=== PATIENT | female | born 2000 | race Caucasian/White ===

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

== ENCOUNTER 2020-01-29 02:41 | Emergency (ER) | payer OTHER ==
[~2020-01-29] VITALS: Ht 157.5 cm; Wt 52.3 kg
[~2020-01-29 02:41] MED LIST: IBUP-1022 PO
[2020-01-29 03:27] LABS: BASO % 0.3 % (0.0-1.0); EOS % 0.1 % (0.0-3.0); HEMATOCRIT 35.9 % (36.0-47.0); HEMOGLOBIN 12.1 g/dl (12.0-15.5); LYMPH # 1.1 10^3/uL (1.5-5.0); LYMPH % 12.2 % (24.0-44.0); MEAN CORPUSCULAR HEMOGLOBIN 28.2 pg (27.0-33.0); MEAN CORPUSCULAR HGB CONC 33.7 g/dl (32.0-36.5); MEAN CORPUSCULAR VOLUME 83.7 fl (80.0-96.0); MONO # 0.6 10^3/uL (0.0-0.8); MONO % 6.4 % (0.0-5.0); NEUTROPHILS # 7.4 10^3/uL (1.5-8.5); NEUTROPHILS % 80.8 % (36.0-66.0); PLATELET COUNT, AUTOMATED 268 10^3/uL (150-450); RED BLOOD COUNT 4.29 10^6/uL (4.00-5.40); WHITE BLOOD COUNT 9.1 10^3/uL (4.0-10.0)
--- NOTE | 2020-01-29 05:24 | REPVR ---
PROCEDURE INFORMATION: Exam: US First Trimester, Transabdominal and US , Transvaginal Exam date and time: 01/29/2020 4:35 AM Age: 19 years old Clinical indication: Lmp or gestational age (in weeks): 6wks; Other: Vag bleeding; ; Additional info: Cynthia bld TECHNIQUE: Imaging protocol: Real-time transabdominal obstetrical ultrasound of the maternal pelvis and a first trimester , less than 14 weeks 0 days, with image documentation. Transvaginal imaging was used for better evaluation of the fetus and adnexa. COMPARISON: No relevant prior studies available. FINDINGS: Gestation: There is an intrauterine gestational sac. No pole is visible. A yolk sac is present. There is hypoechoic tissue adjacent to the gestational sac consistent with hemorrhage, measuring 2.9 x 0.7 x 2.4 cm. Heart rate: No pole identified. Placenta: See Gestation findings. Amniotic fluid: Amniotic fluid is normal for gestational age. BIOMETRY: Estimated gestational age: The estimated gestational age by mean sac diameter is 6 weeks 3 days. Mean sac diameter: The mean sac diameter is 1.58 cm, corresponding to a 6 week 3 day gestation. MATERNAL: Uterus: The uterus is anteverted and measures 7.6 x 5.1 x 6.5 cm . Cervix: Unremarkable. Right adnexa: There is a mildly complex cystic lesion within the right ovary which measures up to 1.7 cm in diameter consistent with a corpus luteum. The right ovary measures 3.7 x 2.1 x 2.6 cm. Normal blood flow is seen in the right ovary on color and pulsed Doppler imaging. Left adnexa: The left ovary appears normal and measures 2.3 x 1.3 x 2.6 cm. Normal blood flow is seen in the left ovary on color and pulsed Doppler imaging. Intraperitoneal space: No intraperitoneal free fluid. IMPRESSION: Intrauterine of uncertain viability. Intrauterine gestational sac with a mean sac diameter of 1.58 cm and a yolk sac but no pole visible, and a perigestational sac hemorrhage. Serial beta HCG follow-up recommended and ultrasound follow-up if clinically indicated. Electronically signed by: Shalonda Parikh On 01/29/2020 05:24:30 AM
[2020-01-29 05:35] VITALS: BP 130/76
== END 2020-01-29 05:36 | disposition home or self-care (01) ==
LOC: M ED 02:41
DX: O20.0 Threatened abortion (principal); O20.8 Other hemorrhage in early pregnancy; Z3A.01 Less than 8 weeks gestation of pregnancy

== ENCOUNTER 2020-03-26 17:51 | Emergency (ER) | payer OTHER ==
[~2020-03-26] VITALS: Ht 154.9 cm; Wt 53.4 kg
--- NOTE | 2020-03-26 20:55 | REPVR ---
PROCEDURE INFORMATION: Exam: US First Trimester, Transabdominal Exam date and time: 03/26/2020 8:42 PM Age: 19 years old Clinical indication: Condition or disease; Lmp or gestational age (weeks): 12/17/19; Other: Diagnosed with demise, ; 2nd ; ; Additional info: Miscarraige TECHNIQUE: Imaging protocol: Real-time transabdominal obstetrical ultrasound of the maternal pelvis and a first trimester , less than 14 weeks 0 days, with image documentation. COMPARISON: No relevant prior studies available. FINDINGS: Gestation: Single gestational sac demonstrated within the uterus. Single fetus demonstrated within the gestational sac with a crown-rump length measuring 22 mm consistent with 8 weeks 6 days. Gestational age based on LMP of 12/17/2019 corresponds to 14 weeks 2 days. Embryonic/ heart rate: Absent cardiac activity consistent with early loss. Placenta: Posterior placenta demonstrated. Amniotic fluid: Amniotic fluid volume unremarkable. BIOMETRY: Gestational age (AUA): 14 weeks 2 days based on clinical dates versus 8 weeks 6 days based on crown-rump length measurements suggesting demise occurring at approximately 8 weeks 6 days. MATERNAL: Uterus: Uterus measures 16 x 8 x 9.6 cm. Cervix: Unremarkable. Right adnexa: Unremarkable. Left adnexa: Unremarkable. Intraperitoneal space: No intraperitoneal free fluid. IMPRESSION: Early loss as described above. Electronically signed by: Efren Whitney On 03/26/2020 20:54:34 PM
[2020-03-26 21:17] VITALS: BP 121/64
== END 2020-03-26 21:18 | disposition home or self-care (01) ==
LOC: M ED 17:51
DX: O02.1 Missed abortion (principal)

== ENCOUNTER → 2020-06-14 | Outpatient (CLI) | payer OTHER ==
--- NOTE | 2020-06-14 10:20 | REP ---
INDICATION: CONFIRM VIABILITY VS ECTOPIC COMPARISON: None. TECHNIQUE: Transabdominal and transvaginal 1st trimester obstetrical ultrasound with color Doppler evaluation. FINDINGS: Heterogeneous enlarged uterus measures 9.4 x 9.8 x 5.7 cm the endometrium is significantly heterogeneous with complex hypoechoic areas, hypervascular and thickened to 46 mm. No discrete, defined intrauterine is appreciated. Correlation with serial beta HCG levels is recommended. Bilateral maternal ovaries are normal in appearance and vascularity without torsion. Right ovary measures 2.8 x 1.9 x 1.9 cm (RI 0.48). Left ovary measures 2.1 x 1.1 x 1.3 cm (RI 0.46). No pelvic fluid or adnexal mass lesion noted. IMPRESSION: Heterogeneous complex vascular thickened endometrium os oblique representing decidual reaction without discernible intrauterine identified. Differential diagnosis includes early as well as spontaneous . Correlation with serial HCG levels and repeat ultrasound recommended. <Electronically signed by Bebeto Sierra > 06/14/20 [id number]
== END ==
LOC: M WHC 08:59
PROVIDERS: ATTEND Advanced Practice Midwife
DX: N91.2 Amenorrhea, unspecified (principal); Z33.1 Pregnant state, incidental

== ENCOUNTER 2020-06-23 09:21 | Emergency (ER) | payer OTHER ==
[~2020-06-23] VITALS: Ht 157.5 cm; Wt 52.1 kg
[2020-06-23] MEDS ORDERED: NS 1,000 ML IV ONE (09:30)
[2020-06-23] MEDS ORDERED: KETOROLAC 30 MG/ML 1ML VIAL IV ONE (10:15)
[2020-06-23 10:21] LABS: HEMATOCRIT 35.8 % (36.0-47.0); HEMOGLOBIN 12.1 g/dl (12.0-15.5); MEAN CORPUSCULAR HEMOGLOBIN 28.3 pg (27.0-33.0); MEAN CORPUSCULAR HGB CONC 33.8 g/dl (32.0-36.5); MEAN CORPUSCULAR VOLUME 83.6 fl (80.0-96.0); PLATELET COUNT, AUTOMATED 221 10^3/uL (150-450); RED BLOOD COUNT 4.28 10^6/uL (4.00-5.40); WHITE BLOOD COUNT 10.1 10^3/uL (4.0-10.0)
[2020-06-23 10:40] LABS: BLOOD UREA NITROGEN 5 MG/DL (7-18); CALCIUM LEVEL 8.5 MG/DL (8.5-10.1); CARBON DIOXIDE LEVEL 28 MEQ/L (21-32); CHLORIDE LEVEL 105 MEQ/L (98-107); CREATININE FOR GFR 0.63 MG/DL (0.55-1.30); GLUCOSE, FASTING 116 MG/DL (70-100); HCG, SERUM QUANTITATIVE 445 MIU/ML; POTASSIUM SERUM 3.6 MEQ/L (3.5-5.1); SODIUM LEVEL 137 MEQ/L (136-145)
[2020-06-23] MEDS ORDERED: ONDANSETRON 4MG/2ML VIAL IV ONE (11:30)
[2020-06-23] MEDS ORDERED: MORPHINE 2 MG/ML 1ML VIAL (J2270) IV ONE (11:30)
--- NOTE | 2020-06-23 11:45 | REP ---
INDICATION: Recent dilatation and curettage with continued pain and bleeding COMPARISON: None. TECHNIQUE: Transabdominal pelvic ultrasound followed by transvaginal examination for better evaluation of the endometrium and adnexa with color Doppler evaluation of the ovaries. FINDINGS: Bladder is unremarkable and measures 6.3 x 2.9 x 3.8 cm. Enlarged heterogeneous anteverted uterus measures 10.4 x 6.3 x 8.0 cm. The endometrial complex measures greater than 30 mm and includes heterogeneous echogenic avascular material measuring 3.1 x 4.5 x 6.2 cm likely representing hemorrhagic debris and clot. Bilateral ovaries are normal in appearance and vascularity without evidence for torsion. Right ovary measures 2.0 x 2.0 x 3.0 cm; R I = 0.51. Left ovary measures 2.7 x 1.0 x 2.2 cm with a 1.2 x 0.8 x 1.4 cm simple para ovarian cyst.; R I = 0.66. No pelvic free fluid. IMPRESSION: 1. Heterogeneous material distends the endocervical canal likely representing hemorrhagic debris and clot formation. Less likely differential cannot exclude retained products of conception. <Electronically signed by Bebeto Sierra > 06/23/20 [id number]
[2020-06-23 12:06] VITALS: BP 101/52
[2020-06-23] MEDS ORDERED: IBUP100S65 PO (12:16)
--- NOTE | 2020-06-25 11:13 | ED PDOC ---
Post-Departure Follow-Up pelvic us faxed to dr rodriguez for fu Hardik Gordon MD Jun 25, 2020 11:13
== END 2020-06-23 12:30 | disposition home or self-care (01) ==
LOC: M ED 09:21
DX: N99.89 Other postprocedural complications and disorders of genitourinary system (principal); R10.84 Generalized abdominal pain
CPT/HCPCS: 76830; 76856; 80048; 81001; 84702; 85027; 86850; 86900; 86901; 93976; 96361; 96374; 96375; 99284; J1885; J2270; J2405

== ENCOUNTER 2020-09-14 20:09 | Emergency (ER) | payer OTHER ==
[~2020-09-14] VITALS: Ht 157.5 cm; Wt 52.3 kg
[~2020-09-14 20:09] MED LIST changes: +IBUP100S65 PO
--- OUTSIDE RECORDS SUMMARY | 2020-09-14 20:15 | CCD ---
Author Author [facility] Organization [facility] Address Unknown Phone Unavailable Care Team Providers Care Dry Cell Tester Name Role Phone Sonya Smith Unavailable PROBLEMS Type Condition ICD9-CM Code [id number] Code Onset Dates Condition S tatus SNOMED Code Notes Problem Supervision of other normal Z34.80 Ac tive 892159447 Problem Amenorrhea N91.2 Active 21671379 ALLERGIES No Known Allergies ENCOUNTERS from 2000 to 2020-06-18 Encounter Location Date Provider Diagnosis [facility] [address] [place] [phone] May, Sonya Smith IMMUNIZATIONS No Information SOCIAL HISTORY Tobacco Use: Social History Observation Description Date Details (start date - stop date) Never Smoker Sex Assigned At : Social History Observation Description Sex Assigned At Unknown Sexual Hx: Question Answer Notes Had sex in the last 12 months (vaginal, oral, or anal)? Yes Have you ever had an STD? No with Men only Use protection? No Alcohol Screening: Question Answer Notes Did you have a drink containing alcohol in the past year? No Points 0 Interpretation Negative Tobacco Use: Question Answer Notes Are you a: never smoker REASON FOR REFERRAL No Information VITAL SIGNS No information MEDICATIONS No Information PROCEDURES No Information RESULTS No Results REASON FOR VISIT AUTHORIZATION MEDICAL (GENERAL) HISTORY Type Description Date Surgical History 09/2018 Surgical History tonsillectomy Surgical History adenoidectomy Surgical History D&C Hospitalization History Childbirth Goals Section No Information Health Concerns No Information MEDICAL EQUIPMENT No Information MENTAL STATUS No Information FUNCTIONAL STATUS No Information ASSESSMENTS No Information PLAN OF TREATMENT Next Appt Details Provider Name:Sonya Smith 2020-06-20 0 7:30:00 AM, [address] [place], [phone], Provider Name:Sonya Smith, 2020-07-04 0 8:20:00 AM, [address] [place], [address], Insurance Providers Payer Name Payer Address Payer Phone Insured Name Patient Relati onship to Insured Coverage Start Date Coverage End Date MEDICAID [id number] [address] [facility] [id number] [facility] CORPORATE CLAIMS DEPT [address] [facility] [address] NIMA STEVEN self
--- OUTSIDE RECORDS SUMMARY | 2020-09-14 20:15 | CCD ---
Author Author [facility] Organization [facility] Address Unknown Phone Unavailable Care Team Providers Care Florist Helper Name Role Phone Kiana Hand Unavailable PROBLEMS Type Condition ICD9-CM Code [id number] Code Onset Dates Condition S tatus SNOMED Code Notes Problem Supervision of other normal Z34.80 Ac tive 079685068 Problem Amenorrhea N91.2 Active [id number] ALLERGIES No Known Allergies ENCOUNTERS from 2000 to 2020-06-16 Encounter Location Date Provider Diagnosis [facility] [address] [place] [phone] May, Kiana Hand Threatened O20.0 IMMUNIZATIONS No Information SOCIAL HISTORY Tobacco Use: [...] Information RESULTS No Results REASON FOR VISIT Ultrasound results MEDICAL (GENERAL) HISTORY Type Description Date Surgical History 09/2018 Surgical History tonsillectomy Surgical History adenoidectomy Surgical History D&C Hospitalization History Childbirth Goals Section No Information Health Concerns No Information MEDICAL EQUIPMENT No Information MENTAL STATUS No Information FUNCTIONAL STATUS No Information ASSESSMENTS Encounter Date Diagnosis Assessment Notes Treatment Notes Treatm ent Clinical Notes May, Threatened (ICD-10 - O20.0) PLAN OF TREATMENT Treatment Notes Test Name Order Date HCG, SERUM QUANTITATIVE 2020-06-16 Next Appt Details Provider Name:Sonya Smith, 2020-06-18 1 1:40:00 AM, [address] [place], [address], Insurance Providers Payer Name Payer Address Payer Phone Insured Name Patient Relati onship to Insured Coverage Start Date Coverage End Date MEDICAID [email or web address] [address] [facility] [id number] NIMA STEVEN [facility] (NON MEDICAID MANAGED CARE) CORPORATE CLAIMS DEPT [address] [facility] [phone] N[employer] self
--- OUTSIDE RECORDS SUMMARY | 2020-09-14 20:15 | CCD ---
Author Author [facility] Organization [facility] Address Unknown Phone Unavailable Care Team Providers Care Human Resources File Clerk Name Role Phone Sonya Smith Unavailable PROBLEMS Type Condition ICD9-CM Code NUJ41-YU Code Onset Dates Condition S tatus SNOMED Code Notes Problem Supervision of other normal Z34.80 Ac tive 752171335 Problem Amenorrhea N91.2 Active 59883412 ALLERGIES No Known Allergies ENCOUNTERS from 2000 to 2020-07-15 Encounter Location Date Provider Diagnosis [facility] [address] [place] [phone] Jun, Sonya Smith Encounter for postop erative care Z48.89 IMMUNIZATIONS No Information SOCIAL HISTORY Tobacco Use: [...] REASON FOR REFERRAL No Information VITAL SIGNS Weight 114 lbs Jun, Height 62 in Jun, BMI 20.85 kg/m2 Jun, Blood pressure systolic 106 mm Hg Jun, Blood pressure diastolic 64 mm Hg Jun, MEDICATIONS No Known Medications PROCEDURES No Information RESULTS Component Value Reference Range HCG, SERUM QUANTITATIVE Reviewed date:07/13/2020 09:12:35 Interpretation: Performing Lab:[facility], [facility] [address] [address] , ,[place] [address] HCG, SERUM QUANTITATIVE 5 REASON FOR VISIT 2WK PO VISIT MEDICAL (GENERAL) HISTORY Type Description Date Surgical History 09/2018 Surgical History tonsillectomy Surgical History adenoidectomy Surgical History D&C Hospitalization History Childbirth Goals Section No Information Health Concerns No Information MEDICAL EQUIPMENT No Information MENTAL STATUS No Information FUNCTIONAL STATUS No Information ASSESSMENTS Encounter Date Diagnosis Assessment Notes Treatment Notes Treatm ent Clinical Notes Jun, Encounter for postoperative care (ICD-10 - Z48.8 9) declines control desired future. Patient instructed once contact office to obtain early hCG level followed by early ultrasound. PLAN OF TREATMENT Treatment Notes Assessment Notes Clinical Notes Encounter for postoperative care decline s control desired future. Patient instructed once contact office to obtain early hCG level followed by early ultrasound. Next Appt Details prn Reason: Insurance Providers Payer Name Payer Address Payer Phone Insured Name Patient Relati onship to Insured Coverage Start Date Coverage End Date MEDICAID [employer] [address] [facility] [id number] [facility] CORPORATE CLAIMS DEPT [address] [facility] [phone] NIMA STEVEN
--- OUTSIDE RECORDS SUMMARY | 2020-09-14 20:15 | CCD ---
Author Author [facility] Organization [facility] Address [address] [place], [place] [phone] Phone Care Team Providers Care Merchandising Consultant Name Role Phone JOSE MARINELLI Unavailable Allergies, Adverse Reactions, Alerts No Known Drug Allerg ies 10/23/2016 Medications * Continue: * * No Active Medications 08/02/2020 * Discontinued: * * dexAMETHasone 4 mg tablet 11/05/2017 * Jazzy Bryant * Claritin RediTabs 10 mg disintegrating tablet 09/22/2018 * RENE KOWALSKI LPN * 28 mg iron-800 mcg tablet 08/02/2020 Problems Acute pharyngitis, unspecified (J02.9) Nasal congestion (R09.81) 11/05/2017 Acute pharyngitis, unspecified (J02.9) Encounter for test, result pos itive (Z32.01) 02/18/2018 Amenorrhea, unspecified (N91.2) 8 Acute upper respiratory infection, unspe cified (J06.9) 07/25/2018 Nasal congestion (R09.81) 09/22/2018 Acute pharyngitis, unspecified (J02.9) Impacted cerumen, bilateral (H61.23) 08/28 Acute upper respiratory infection, unspe cified (J06.9) 09/22/2018 Acute nasopharyngitis [common cold] (J00 ) 09/28/2018 Acute nasopharyngitis [common cold] (J00 ) 05/11/2019 Nasal congestion (R09.81) 05/11/2019 Otalgia, bilateral (H92.03) 05/11/2019 Dizziness and giddiness (R42) 08/02/2020 Other symptoms and signs concerning food and fluid intake (R63.8) 08/02/2020 Results Leukocytes: Negative 08/02/2020 Nitrite: Negative 08/02/2020 Urobilinogen: 2 mg/dL 08/02/2020 Protein: +1 08/02/2020 pH: 6.5 08/02/2020 Blood (Urine): Hemol +++ 08/02/2020 Specific [place]: 1.020 08/02/2020 Ketone: Negative 08/02/2020 Bilirubin: Negative 08/02/2020 Glucose: Negative 08/02/2020 TSH,ULTRASENSITIVE @: 0.826 mIU/L SODIUM: 143 mmol/L 08/02/2020 Potassium: 4.1 mmol/L 08/02/2020 CHLORIDE: 105 mmol/L 08/02/2020 CO2: 28 mmol/L 08/02/2020 ANION GAP: 10 mmol/L 08/02/2020 UREA NITROGEN: 12 mg/dL 08/02/2020 Creatinine: 0.66 mg/dL 08/02/2020 BUN/CREAT RATIO: 18.2 RATIO 08/02/2020 Glucose: 84 mg/dL 08/02/2020 CALCIUM: 8.9 mg/dL 08/02/2020 TOTAL PROTEIN: 7.1 g/dL 08/02/2020 ALBUMIN: 4.2 g/dL 08/02/2020 GLOBULIN: 2.9 g/dL 08/02/2020 ALB/GLOB RATIO: 1.4 RATIO 08/02/2020 ALKALINE PHOSPHATASE: 80 U/L 08/02/2020 BILIRUBIN,TOTAL: 0.9 mg/dL 08/02/2020 AST (SGOT): 13 U/L 08/02/2020 ALT (SGPT): 28 U/L 08/02/2020 GFR : >60 08/02/2020 GFR ( AMER): >60 08/02/2020 WBC: 3.9 10*3/uL 08/02/2020 RBC: 4.57 10*6/uL 08/02/2020 HGB: 13.1 g/dL 08/02/2020 HCT: 38.6 % 08/02/2020 MCV: 84.4 fL 08/02/2020 MCH: 28.7 pg 08/02/2020 MCHC: 34.1 g/dL 08/02/2020 RDW: 12.8 % 08/02/2020 PLT: 279 10*3/uL 08/02/2020 MPV: 8.8 fL 08/02/2020 NEUT %: 47.9 % 08/02/2020 LYMPH %: 40.9 % 08/02/2020 MONO %: 9.7 % 08/02/2020 EOS %: 0.4 % 08/02/2020 BASO %: 1.1 % 08/02/2020 NEUT #: 1.9 10*3/uL 08/02/2020 LYMPH #: 1.6 10*3/uL 08/02/2020 MONO #: 0.4 10*3/uL 08/02/2020 EOS #: 0 10*3/uL 08/02/2020 BASO #: 0 10*3/uL 08/02/2020 Chief Complaint/Reason for Visit EKG sinus rhythm without ectopy or ST ch angesFBG 100Orthostatic vital signs normalUrinalysis unremarkableUrine culture not indicatedUrine negativeLabs ordered and collectedTesting for COVID19 is negative. However - negative results do not rule out a SARS CoV-2 infection, particularly in those who have been in contact with the virus.Patient encouraged to eat something small every 2-3 hours,If symptoms fail to improve or labs indicate abnormality, treatment will be pending those resultsPatient does not have a primary care providerShe is given contact information for local providers accepting new patientIf symptoms fail to improve she is asked to follow-up here until she gets established lightheaded UNremarkable examPt requested note for jody torres, one provided, she works again on 05/13/19Advised to use salt water gargles, drink warmed fluids, increase fluid intake, blow nose oftenF/U PCP SORE THROAT/EAR ACHE Unremarkable examHome care discussedF/U sheet layer Cough Ear lavage cleared canals, no infection notedHome care discussed sick since yesterday morning sore throat, both ears hurt. She is 29 wks Patient presents with several complaints 1. Sore throat. Rapid strep is negativeThroat culture sentExam is unrevealingHousehold contact with coxsackievirus2. Tenderness in the breastOn examination no obvious massI advised follow-upFurther questioning revealed that her menstrual period is late which leads to #33. Amenorrhea. test rapidly turn positivePatient was advisedShe states that she will tell her motherStart vitaminsWill find OB Sore throat x 3 days. Cyst on right justin st, x 1 month ago PharyngitisNasal congestionRapid strep n egativeThroat culture sentStart Claritin sore throat PT AMB TO ROOM FOR ST X LAST NIGHT. PT H NOT TONSILS. PT DID NOT HAVE FLU SHOT. PT DID NOT TAKE ANY OTC MEDICATIONS TODAY. PT TAKES ORTHO TRI CYCLEN. Procedures Performed and Ordered Today * RAPID STREP 11/05/2017 * URINE TEST 02/18/2018 * MED SERV, EMILIANO/WKEND/HOLIDAY 02/18/2018 * RAPID STREP 02/18/2018 * RAPID STREP 07/25/2018 * RAPID STREP 10/23/2016 * REMOVE IMPACTED EAR WAX 09/22/2018 * MED SERV, EMILIANO/WKEND/HOLIDAY 07/25/2018 * INFECTIOUS AGENT DETECTION BY NUCLEIC ACID 08/02/2020 * * Lab: Collected Date 11/05/17 0958 11/05/2017 THROAT PO CULTURE 11/05/2017 Collected Date 02/18/2018 1943 02/18/2018 THROAT PO CULTURE 02/18/2018 THROAT PO CULTURE 07/25/2018 Collected Date 07/25/18 11:50 07/25/2018 THROAT PO CULTURE 10/23/2016 TSH 08/02/2020 CMP 08/02/2020 CBCDIFF 08/02/2020 Collected Date 08/02/2020 Vital signs Body Temperature: Heart Rate: Respiratory Rate: BP: Height: Weight: BMI: O2 Percentage dC Oximetry : Inhaled Oxygen Concentration: 97.1F 08/02/2020 79 beats per minute 16 breaths per minute 08/02/2020 102/70 mmHg 08/02/2020 5ft, 2in 08/02/2020 110lbs 08/02/2020 20.117 08/02/2020 99% 08/02/2020 21% 08/02/2020 Immunizations Social History Smoking Status: Never smoker. 08/02/2020 Reason for Referral Functional Status Plan of Treatment Procedures Scheduled: Collected Date 07/25/2018 THROAT PO CULTURE 07/25/2018 Appointments Schedul ed: , October 23, 2016, 7:00 PM, JOSE MCCARTHY , November 05, 2017, 9:50 AM, JOSE MCCARTHY January, 7:10 PM, JOSE MCCARTHY Wednesday, July 25, 2018, 12:00 PM, OJSE M TREJO NP Saturday, September 22, 2018, 11:40 AM, BOUCHRA GOVEA NP Friday, September 28, 2018, 6:00 PM, BOUCHRA GOVEA NP Saturday, May 11, 2019, 12:40 PM, BOUCHRA GOVEA PARTY PLAN SALES HOST/HOSTESS , August 02, 2020, 2:20 PM, JOSE M TREJO [employer]Y PLAN SALES HOST/HOSTESS Instructions: <Follow up with primary care> We will call with lab and/or xray results If your symptoms worsen, go to the Emergency Room. As discussed, all of your testing here at urgent care was negativeWe did order some labs to send out for further evaluation of your electrolytes and your thyroid as well as your platelets and blood cell countAnemia could be concerning factor however your skin was completely normal and there were no other symptoms that would be indicative of thatHigh suspicion this is related to your poor fluid and food intake. He should not be going 10-12 hours without anything to eat or drinkRecommend half your weight in ounces of water a dayEat something every 3 hours i.e. breakfast, snack, lunch, snack, dinnerRecommend at least [phone] hipolito a dayWe will contact you with the results of your labsShould your symptoms worsen prior to that time, report to the ER <Follow up with primary care> Return if symptoms worsen <Follow up with primary care> Return if symptoms worsen <Follow up with primary care> Treat fever with ibuprofen and/or acetaminophen per label instructions as needed unless allergic or otherwise intolerant. Return if symptoms worsen <Follow up with primary care> Return if symptoms worsen Negative strep- we will send culture for confirmationDiscussed supportive managementTylenol as needed for painSaline nasal spray <Follow up with primary care> Return if symptoms worsen We will call with lab and/or xray results You will need to establish with an obstetricianDo not take any medications without checking first <Follow up with primary care> Treat fever with ibuprofen and/or acetaminophen per label instructions as needed unless allergic or otherwise intolerant. Return if symptoms worsen If your symptoms worsen, go to the Emergency Room. Treat fever with ibuprofen and/or acetaminophen per label instructions as needed unless allergic or otherwise intolerant. Return if symptoms worsen We will call with lab and/or xray results Payers Insurance Policy Type Po licy ID Relation Subscriber Expi ration ID IDENTIFICATION Other Insurance Self [employer]EV[employer] Medicaid - [employer] Medicaid [id number] Self NIMA STEVEN [facility] Commercial Insurance [id number] Self NIMA STEVEN Encounters OFFICE/OUTPATIENT SIT, EST 08/02/2020 Diagnoses Dizziness and giddiness Other symptoms and signs concerning food and fluid intake OFFICE/OUTPATIENT SIT, EST 05/11/2019 OFFICE/OUTPATIENT SIT, EST 09/28/2018 OFFICE/OUTPATIENT SIT, EST 09/22/2018 OFFICE/OUTPATIENT SIT, EST 07/25/2018 Diagnoses Acute upper respiratory infection, unspecified OFFICE/OUTPATIENT SIT, EST 02/18/2018 OFFICE/OUTPATIENT SIT, EST 11/05/2017 MEDICAL SERVICES AFT ER HRS 10/23/2016 OFFICE/OUTPATIENT SIT, EST 10/23/2016
--- OUTSIDE RECORDS SUMMARY | 2020-09-14 20:15 | CCD ---
Author Author [facility] Organization [facility] Address Unknown Phone Unavailable Care Team Providers Care Instrumentation Designer Name Role Phone Sonya Smith Unavailable PROBLEMS Type Condition ICD9-CM Code [id number] Code Onset Dates Condition S tatus SNOMED Code Notes Problem Supervision of other normal Z34.80 Ac tive 085184085 Problem Amenorrhea N91.2 Active [id number] ALLERGIES No Known Allergies ENCOUNTERS from 2000 to 2020-07-03 Encounter Location Date Provider Diagnosis [facility] [address] [place] [id number] May, Sonya Smith Retained placenta wi thout hemorrhage O73.0 IMMUNIZATIONS No Information SOCIAL HISTORY Tobacco Use: [...] FOR REFERRAL No Information VITAL SIGNS Weight 118 lbs May, Height 62 in May, BMI 21.58 kg/m2 May, Blood pressure systolic 108 mm Hg May, Blood pressure diastolic 68 mm Hg May, MEDICATIONS No Known Medications PROCEDURES No Information RESULTS No Results REASON FOR VISIT POSSIBLE ECTOPIC PER [facility] MEDICAL (GENERAL) HISTORY Type Description Date Surgical History 09/2018 Surgical History tonsillectomy Surgical History adenoidectomy Surgical History D&C Hospitalization History Childbirth Goals Section No Information Health Concerns No Information MEDICAL EQUIPMENT No Information MENTAL STATUS No Information FUNCTIONAL STATUS No Information ASSESSMENTS Encounter Date Diagnosis Assessment Notes Treatment Notes Treatm ent Clinical Notes May, Retained placenta without hemorrhage (ICD-10 - O 73.0) Discussed findings with patient and based on ultrasound imaging and her plateaued hCG Quant's, I believe that this is retained tissue from her previous miscarriage. This is less likely an ectopic . Other DDx would include GTD (choriocarcinoma). Discussed office endometrial biopsy versus a repeat dilation and curettage. Discussed risks with both after consultation with patient, will proceed with the dilation and curettage in the OR. Pre-Operative Counseling Procedure: dilation and curettage Surgeon: Sonya Smith MD Patient has been counseling regarding the risks of the procedure to include anesthesia risks to include , bleeding/need for blood transfusion, infection, damage to internal organs, uterine perforation, postoperative pain and need for future surgery based on findings. She understands these risks and wishes to proceed with the above procedures. PLAN OF TREATMENT Treatment Notes Assessment Notes Clinical Notes Retained placenta without hemorrhage Dis cussed findings with patient and based on ultrasound imaging and her plateaued hCG Quant's, I believe that this is retained tissue from her previous miscarriage. This is less likely an ectopic . Other DDx would include GTD (choriocarcinoma). Discussed office endometrial biopsy versus a repeat dilation and curettage. Discussed risks with both after consultation with patient, will proceed with the dilation and curettage in the OR.Pre-Operative CounselingProcedure: dilation and curettageSurgeon: Sonya Smith MDPatient has been counseling regarding the risks of the procedure to include anesthesia risks to include , bleeding/need for blood transfusion, infection, damage to internal organs, uterine perforation, postoperative pain and need for future surgery based on findings. She und erstands these risks and wishes to proceed with the above procedures. Next Appt Details Provider Name:Sonya Smith, 2020-07-04 0 8:20:00 AM, [address] [place], [address], Insurance Providers Payer Name Payer Address Payer Phone Insured Name Patient Relati onship to Insured Coverage Start Date Coverage End Date [facility] (NON MEDICAID MANAGED CARE) CORPORATE CLAIMS DEPT [address] [facility] [phone] [employer] MEDICAID [employer] [address] [facility] [id number] [place] self
--- OUTSIDE RECORDS SUMMARY | 2020-09-14 20:15 | CCD ---
Author Author [facility] Organization [facility] Address Unknown Phone Unavailable Care Team Providers Care Jig And Fixture Builder Name Role Phone Kiana Hand Unavailable PROBLEMS Type Condition ICD9-CM Code [id number] Code Onset Dates Condition S tatus SNOMED Code Notes Problem Supervision of other normal Z34.80 Ac tive 024017517 Problem Amenorrhea N91.2 Active [id number] ALLERGIES No Known Allergies ENCOUNTERS from 2000 to 2020-06-30 Encounter Location Date Provider Diagnosis [facility] [address] [place] [id number] May, Kiana Hand with incon clusive viability O36.80X0 and Amenorrhea N91.2 IMMUNIZATIONS No Information SOCIAL HISTORY Tobacco Use: [...] FOR REFERRAL No Information VITAL SIGNS Weight 120.2 lbs May, Weight-kg 54.52 kg May, Height 62 in May, BMI 21.985 kg/m2 May, Blood pressure systolic 102 mm Hg May, Blood pressure diastolic 72 mm Hg May, MEDICATIONS No Known Medications PROCEDURES No Information RESULTS Component Value Reference Range HCG, SERUM QUANTITATIVE Reviewed date:06/12/2020 13:04:08 Interpretation: Performing Lab:[facility], [facility] [address] [facility] [address] , ,[place] [address] HCG, SERUM QUANTITATIVE 2023 WW OBS COMPLETE US Reviewed date:06/29/2020 14:45:45 Interpretation: Performing Lab:[facility], [place] [address] REASON FOR VISIT 1ST PN VISIT MEDICAL (GENERAL) HISTORY Type Description Date Surgical History 09/2018 Surgical History tonsillectomy Surgical History adenoidectomy Surgical History D&C Hospitalization History Childbirth Goals Section No Information Health Concerns No Information MEDICAL EQUIPMENT No Information MENTAL STATUS No Information FUNCTIONAL STATUS No Information ASSESSMENTS Encounter Date Diagnosis Assessment Notes Treatment Notes Treatm ent Clinical Notes May, with inconclusive viability (ICD -10 - O36.80X0) May, Amenorrhea (ICD-10 - N91.2) PLAN OF TREATMENT Next Appt Details prn Reason: Provider Name:Sonya Smith, 2020-07-04 0 8:20:00 AM, [address] [place], [address], Insurance Providers Payer Name Payer Address Payer Phone Insured Name Patient Relati onship to Insured Coverage Start Date Coverage End Date [facility] (NON MEDICAID MANAGED CARE) CORPORATE CLAIMS DEPT [address] [facility] [phone] [employer] MEDICAID [facility] [address] [facility] [id number] [place]
--- OUTSIDE RECORDS SUMMARY | 2020-09-14 20:16 | CCD ---
Author Author [facility] Organization [facility] Address Unknown Phone Unavailable Care Team Providers Care Churner Name Role Phone Funmilayo Ortiz MD Unavailable Unavailable Naro, M Kaye CNM Unavailable Unavailable Naro, M Kaye CNM Unavailable Unavailable Naro, M Kaye CNM Unavailable Unavailable Naro, M Kaye CNM Unavailable Unavailable Naro, M Kaye CNM Unavailable Unavailable Naro, M Kaye CNM Unavailable Unavailable Naro, M Kaye CNM Unavailable Unavailable Naro, M Kaye CNM Unavailable Unavailable Naro, M Kaye CNM Unavailable Unavailable Naro, M Kaye CNM Unavailable Unavailable Naro, M Kaye CNM Unavailable Unavailable Naro, M Kaye CNM Unavailable Unavailable Naro, M Kaye CNM Unavailable Unavailable Naro, M Kaye CNM Unavailable Unavailable Naro, M Kaye CNM Unavailable Unavailable Funmilayo Ortiz MD Unavailable Unavailable Tiffany Aguiar SMALL ENGINE TRAINER Unavailable Unavailable Tiffany Aguiar SMALL ENGINE TRAINER Unavailable Unavailable Tiffany Aguiar SMALL ENGINE TRAINER Unavailable Unavailable Potter, M Yenni SMALL ENGINE TRAINER Unavailable Unavailable Potter, M Yenni SMALL ENGINE TRAINER Unavailable Unavailable Potter, M Yenni SMALL ENGINE TRAINER Unavailable Unavailable Potter, M Yenni SMALL ENGINE TRAINER Unavailable Unavailable Potter, M Yenni SMALL ENGINE TRAINER Unavailable Unavailable Potter, M Yenni SMALL ENGINE TRAINER Unavailable Unavailable Potter, M Yenni SMALL ENGINE TRAINER Unavailable Unavailable Potter, M Yenni SMALL ENGINE TRAINER Unavailable Unavailable Potter, M Yenni SMALL ENGINE TRAINER Unavailable Unavailable Potter, M Yenni SMALL ENGINE TRAINER Unavailable Unavailable Potter, M Yenni SMALL ENGINE TRAINER Unavailable Unavailable Potter, M Yenni SMALL ENGINE TRAINER Unavailable Unavailable Potter, M Yenni SMALL ENGINE TRAINER Unavailable Unavailable Potter, M Yenni SMALL ENGINE TRAINER Unavailable Unavailable Potter, M Yenni SMALL ENGINE TRAINER Unavailable Unavailable Potter, M Yenni SMALL ENGINE TRAINER Unavailable Unavailable Potter, M Yenni SMALL ENGINE TRAINER Unavailable Unavailable Potter, M Yenni SMALL ENGINE TRAINER Unavailable Unavailable Potter, M Yenni SMALL ENGINE TRAINER Unavailable Unavailable Potter, M Yenni SMALL ENGINE TRAINER Unavailable Unavailable Potter, M Yenni SMALL ENGINE TRAINER Unavailable Unavailable Potter, M Yenni SMALL ENGINE TRAINER Unavailable Unavailable Potter, M Yenni SMALL ENGINE TRAINER Unavailable Unavailable Potter, M Yenni SMALL ENGINE TRAINER Unavailable Unavailable Potter, M Yenni SMALL ENGINE TRAINER Unavailable Unavailable Potter, M Yenni SMALL ENGINE TRAINER Unavailable Unavailable Potter, M Yenni SMALL ENGINE TRAINER Unavailable Unavailable Potter, M Yenni SMALL ENGINE TRAINER Unavailable Unavailable Potter, M Yenni SMALL ENGINE TRAINER Unavailable Unavailable Potter, M Yenni SMALL ENGINE TRAINER Unavailable Unavailable Potter, M Yenni SMALL ENGINE TRAINER Unavailable Unavailable Potter, M Yenni SMALL ENGINE TRAINER Unavailable Unavailable Potter, M Yenni SMALL ENGINE TRAINER Unavailable Unavailable Potter, M Yenni SMALL ENGINE TRAINER Unavailable Unavailable Potter, M Yenni SMALL ENGINE TRAINER Unavailable Unavailable Potter, M Yenni SMALL ENGINE TRAINER Unavailable Unavailable Potter, M Yenni SMALL ENGINE TRAINER Unavailable Unavailable Potter, M Yenni SMALL ENGINE TRAINER Unavailable Unavailable Potter, M Yenni SMALL ENGINE TRAINER Unavailable Unavailable Potter, M Yenni SMALL ENGINE TRAINER Unavailable Unavailable Potter, M Yenni SMALL ENGINE TRAINER Unavailable Unavailable Potter, M Yenni SMALL ENGINE TRAINER Unavailable Unavailable Potter, M Yenni SMALL ENGINE TRAINER Unavailable Unavailable Potter, M Yenni SMALL ENGINE TRAINER Unavailable Unavailable Potter, M Yenni SMALL ENGINE TRAINER Unavailable Unavailable Potter, M Yenni SMALL ENGINE TRAINER Unavailable Unavailable Potter, M Yenni SMALL ENGINE TRAINER Unavailable Unavailable Potter, M Yenni SMALL ENGINE TRAINER Unavailable Unavailable Potter, M Yenni SMALL ENGINE TRAINER Unavailable Unavailable Potter, M Yenni SMALL ENGINE TRAINER Unavailable Unavailable Potter, M Yenni SMALL ENGINE TRAINER Unavailable Unavailable Tiffany Aguiardith SMALL ENGINE TRAINER Unavailable Unavailable Irland, R Tiffany PA Unavailable Unavailable Irland, R Tiffany PA Unavailable Unavailable Irland, R Tiffany PA Unavailable Unavailable Irland, R Tiffany PA Unavailable Unavailable Irland, R Tiffany PA Unavailable Unavailable Irland, R Tiffany PA Unavailable Unavailable Irland, R Tiffany PA Unavailable Unavailable Irland, R Tiffany PA Unavailable Unavailable Irland, R Tiffany PA Unavailable Unavailable Irland, R Tiffany PA Unavailable Unavailable Irland, R Tiffany PA Unavailable Unavailable Irland, R Tiffany PA Unavailable Unavailable Irland, R Tiffany PA Unavailable Unavailable Irland, R Tiffany PA Unavailable Unavailable Irland, R Tiffany PA Unavailable Unavailable Irland, R Tiffany PA Unavailable Unavailable Irland, R Tiffany PA Unavailable Unavailable Re-disclosure Warning The records that you are about to access may contain information from federally-assisted alcohol or drug abuse programs. If such information is present, then the following federally mandated warning applies: This information has been disclosed to you from records protected by federal confidentiality rules (42 CFR part 2). The federal rules prohibit you from making any further disclosure of this information unless further disclosure is expressly permitted by the written consent of the person to whom it pertains or as otherwise permitted by 42 CFR part 2. A general authorization for the release of medical or other information is NOT sufficient for this purpose. The Federal rules restrict any use of the information to criminally investigate or prosecute any alcohol or drug abuse patient.The records that you are about to access may contain highly sensitive health information, the redisclosure of which is protected by Article 27-F of the [facility] Public Health law. If you continue you may have access to information: Regarding HIV / AIDS; Provided by facilities licensed or operated by the [facility] Office of Mental Health; or Provided by the [facility] Office for People With Developmental Disabilities. If such information is present, then the following [facility] mandated warning applies: This information has been disclosed to you from confidential records which are protected by state law. State law prohibits you from making any further disclosure of this information without the specific written consent of the person to whom it pertains, or as otherwise permitted by law. Any unauthorized further disclosure in violation of state law may result in a fine or halfway sentence or both. A general authorization for the release of medical or other information is NOT sufficient authorization for further disc losure. Allergies and Adverse Reactions Type Description Substance Reaction Status Data Source(s ) Drug allergy No Known Allergies No Known Allergies [facility] Encounters Encounter Providers Location Date Indications Data Source(s ) OutpatientOFFICE/OUTPATIENT VISIT, EST 08/02/2020 Attender: Gutierrez Aguiar NP 08/02/2020 02:50:53 PM EST CHARTMAKER ([facility]) ([facility] PO) [facility] [facility] [address] [place] [address] 07/05/2020 12:00:00 AM EST eCW1 ([facility]) Outpatient [address] [facility] [address] 06/18/2020 12:00:00 AM EST [facility] Unknown [address] [facility] [id number] 06/18/2020 12:00:00 AM EST [facility]CW1 [facility] Unknown [address] [facility] [address] 06/15/2020 12:00:00 AM EST eCW1 ([facility]) Unknown [address] [facility] [address] 06/14/2020 12:00:00 AM EST eCW1 ([facility]) Outpatient [address] [facility] [id number] 06/11/2020 12:00:00 AM EST eCW1 ([facility]) Outpatient Attender: Funmilayo Ortiz MD 03/30 09:39:00 AM EDT - 03/30/2020 01:30:00 PM EDT [address] [facility] [address] Patient discharged. Outpatient Attender: Funmilayo Ortiz MD 03/28/2020 11:14:00 AM EDT swab [facility] swab Outpatient Attender: Kaye Cuellar CNM 03/13/2020 11:00:00 PM EDT [employer] [facility] [employer] Outpatient Attender: Tiffany MCCARTHY 03/12/2020 01:50:00 P M EDT [facility] Attender: Kaye Cuellar ARTUROTiffany 01/31/2020 09:03:00 AM EDT [facility] Functional Status Medications Medication Brand Name Start Date Product Form Dose Route Admi nistrative Instructions Pharmacy Instructions Status Indications Reaction Description Data Source(s) No known medications 08/02/2020 12:00:00 AM EST completed No known medications CHARTMAKER ([facility]) 100 mg/5 mL 06/23/2020 12:00:00 AM EST suspension 600 TAKE 40 ML BY MOUTH EVERY 6 HOURS NEEDED FOR PAIN TAKE 40 ML BY MOUTH EVERY 6 HOURS NEE DED FOR PAIN SOLD: 06/23/2020 [facility] Acetaminophen 160 MG Chewable Tablet [place] taminophen (Children's Acetaminophen) 160 mg tablet,chewable Acetaminophen (Children's Acetaminophen) 160 mg tablet,chewable 03/30/2020 12:27:14 PM EDT UNASSIGNED 640 MG ORAL active [facility] 81 mg 03/14/2020 12:00:00 AM EDT tablet,chewable 30 CHEW ONE TABLET BY MOUTH EVERY DAY CHEW ONE TABLET BY MOUTH EVERY DAY SOLD: 03/16/2020 [facility] ferrous sulfate 325 MG Delayed Release Oral Tablet Linus lauren Sulfate Ferrous Sulfate 10/17/2018 09:14:08 AM EDT UNASSIGNED 325 MG ORAL completed [facility] Ibuprofen 600 MG Oral Tablet Ibuprofen 10/17/2018 09:14:08 AM EDT TA BLET 600 MG ORAL [facility] iron-800 mcg tablet 02/18/2018 12:00:00 AM EDT 1 completed 08/02/2020 CHARTMAKER ([facility]) Insurance Providers Payer name Policy type / Coverage type Policy ID Covered alliance party ID Covered alliance party's relationship to coughlin Policy [place] Plan Information MAYNOR [id number] SP [id number] 500 [place] [facility] [id number] Commercial Insurance [id number] Medicaid - [employer] [id number] Medica id [id number] ID IDENTIFICATION [id number] Other In surance [id number] [place] O [id number] S [id number] EMEDNY [id number] SP [id number] [place] [id number] SP [id number] MAYNOR [id number] SP [id number] MAYNOR [id number] SP [id number] 500 SELF PAY [place] [id number] SP [id number] SELF PAY [place] [id number] SP [id number] SELF PAY [place] [id number] SP [id number] 500 SELF PAY [place] [id number] SP [id number] 500 MAYNOR [id number] SP [id number] 500 SELF PAY [place] [id number] SP [id number] [place] Individual Policy 0 Self 0 [place] Individual Policy 0 Self 0 SELF PAY MAYNOR [id number] SP [id number] 500 MEDICAID [facility] [id number] SP DF [id number] SELF PAY MEDICAID [facility] [id number] SP DF [id number] MAYNOR [id number] SP [id number] 500 SELF PAY [place] Individual Policy 0 Self 0 SELF PAY MEDICAID [facility] [id number] SP DF [id number] MAYNOR [id number] SP [id number] 500 SELF PAY MEDICAID [facility] [id number] SP DF [id number] MAYNOR [id number] SP [id number] 500 SELF PAY [place] [id number] SP [id number] 500 MEDICAID [facility] [id number] SP DF [id number] MAYNOR [id number] SP [id number] 500 [place]NOR UNAVAILABLE UNAVAILA BLE MEDICAID [facility] [id number] SP DF [id number] MAYNOR I [id number] Self [id number] 500 MAYNOR MEDICAID [id number] Ginny 7 [id number] MEDICAID [facility] [id number] SP DF [id number] MEDICAID [facility] [id number] SP DF [id number] May[place] Care [id number] Commercial Insurance [id number] Medicaid - [facility] [employer] [place] [id number] Medica id [id number] SELF PAY UNAVAILABLE SP UNAVAILA BLE Medicaid of [place] Other 03 Self 03 Medicaid [facility] Other 03 Self 03 Medicaid - [employer] [id number] Medica id [id number] Medicaid of [place] Other Self [place] Individual Policy Self Medicaid of [place] Individual Policy Self [id number] 500 [facility] Medicaid Self [employer] [id number] SP [id number] Problems, Conditions, and Diagnoses Code Display Name Description Problem Type Effective Dates Data Source(s) R63.8 Other symptoms and signs concerning food and fluid intake Other symptoms and signs concerning food and fluid intake (R63.8) 08/02/2020 [id number] 08/02/2020 02:50:53 PM EST CHARTMAKER ([facility]) R42 Dizziness and giddiness Dizziness and giddiness (R42) 08/02/2020 [id number] 08/02/2020 02:50:53 PM EST CHARTMAKER ([facility]) N91.2 Amenorrhea Amenorrhea Problem 06/14/2020 12:00:00 AM ES T [facility] Z34.80 care Supervision of other normal P ronaklem 06/11/2020 12:00:00 AM EST [facility] O02.1 Missed O02.1 - Missed Diagnosis 0 03/30/2020 09:39:00 AM T [facility] Z34.81 Encounter for supervision of other magy l , first trimester Z34.81 - Encounter for supervision of other normal , first trimester Diagnosis 03/13/2020 11:00:00 PM EDT [facility] N91.1 Secondary amenorrhea N91.1 - Secondary amenorrhea Diag nosis 01/31/2020 09:03:00 AM T [facility] Surgeries/Procedures Procedure Description Date Indications Data Source(s) INFECTIOUS AGENT DETECTION BY NUCLEIC ACID 08/02/2020 08/02/2020 12:00:00 AM EST CH[facility]MAKER ([facility]) Dilation and curettage of uterus (procedure) 0 12:00:00 PM EDT [facility] Urine culture (procedure) 03/12/2020 12:00:00 AM T [facility] Monocyte percent differential count (procedure) 2019 12:00:00 AM T [facility] Results ID Date Data Source [id number] 08/03/2020 11:52:20 AM EST [facility] Name Value Range Interpretation Code Description Data Jayla rce(s) Supporting Document(s) WBC 3.9 10*3/uL (4.1-11.0) L [facility] RBC 4.57 10*6/uL (4.00-5.40) [facility] HGB 13.1 g/dL (12.0-16.0) [facility] HCT 38.6 % (36.0-47.0) [facility] MCV 84.4 fL (80.0-95.0) [facility] MCH 28.7 pg (27.0-32.0) [facility] MCHC 34.1 g/dL (32.0-36.0) [facility] RDW 12.8 % (10.5-14.5) [facility] PLT 279 10*3/uL (150-450) [facility] MPV 8.8 fL (7.1-10.7) [facility] NEUT % 47.9 % (35.0-75.0) [facility] LYMPH % 40.9 % (16.0-52.0) [facility] MONO % 9.7 % (0.0-8.0) H [facility] EOS % 0.4 % (0.0-5.0) [facility] BASO % 1.1 % (0.0-4.0) [facility] NEUT # 1.9 10*3/uL (1.8-7.7) [facility] LYMPH # 1.6 10*3/uL (1.2-4.8) [facility] MONO # 0.4 10*3/uL (0.0-0.8) [facility] Eosinophils [#/volume] in Blood by Automated count 0.0 10*3/uL (0.0-0 .5) Laboratory Surrency [facility] BASO # 0.0 10*3/uL (0.0-0.2) [facility] ID Date Data Source [id number] 08/03/2020 12:11:56 PM EST Laboratory Al [facility] of [facility] - CORE Name Value Range Interpretation Code Description Data Jayla rce(s) Supporting Document(s) TSH,ULTRASENSITIVE @ 0.826 mIU/L (0.463-3.980) [facility] ID Date Data Source [id number] 08/03/2020 12:11:56 PM EST Laboratory Al [facility] [employer] Name Value Range Interpretation Code Description Data Jayla rce(s) Supporting Document(s) SODIUM 143 mmol/L (136-145) [facility] POTASSIUM 4.1 mmol/L (3.6-5.2) [facility] CHLORIDE 105 mmol/L (100-108) [facility] CO2 28 mmol/L (22-31) [facility] ANION GAP 10 mmol/L (7-16) [facility] UREA NITROGEN 12 mg/dL (7-24) Laboratory Allia nce of [facility] - [facility] CREATININE 0.66 mg/dL (0.60-1.00) Laboratory Allia nce of [facility] - [facility] BUN/CREAT RATIO 18.2 RATIO (10.0-20.0) Laboratory Surrency of [facility] CORE GLUCOSE 84 mg/dL (70-99) Laboratory Surrency of [facility] - [facility] CALCIUM 8.9 mg/dL (8.4-10.2) Laboratory [facility] TOTAL PROTEIN 7.1 g/dL (6.4-8.2) Laboratory Allia nce of [facility] - [facility] ALBUMIN 4.2 g/dL (3.5-4.6) Laboratory [facility] of [facility] - [facility] GLOBULIN 2.9 g/dL (2.7-4.3) Laboratory [facility] of [facility] - [facility] ALB/GLOB RATIO 1.4 RATIO Laboratory Jb ance of [facility] - [facility] ALKALINE PHOSPHATASE 80 U/L (45-117) Laborator y Surrency of [facility] - [facility] BILIRUBIN,TOTAL 0.9 mg/dL (0.0-1.0) Laboratory All iance of [facility] Base [employer] [facility] PLEASE NOTE:Total bilirubin results may be falselyelevated in patients taking Eltrombopag. AST (SGOT) 13 U/L (11-39) Laboratory Surrency of [employer] [facility] ALT (SGPT) 28 U/L (12-78) Laboratory Surrency of [facility] GFR >60 ml/min/1.73m2 (>59) Laboratory A lliance of [facility] - [employer] GFR ( AMER) >60 ml/min/1.73m2 (>59) Laboratory Surrency of [employer] - [employer] GFR INTERPRETATION Laboratory Surrency of [employer] [facility] --NORMAL KIDNEY FUNCTION OR MILD DISEASE - GFR >OR= 60CHRONIC KIDNEY DISEASE - GFR 15 - 59RENAL FAILURE - GFR <15 Est. GFR calculation based on the MDRDstudy equation, which assumes a steadystate for creatinine. Est. GFR should notbe used for medication dosing. ID Date Data Source [id number] 08/02/2020 12:00:00 AM EST CHARTMAKER ([facility]) Name Value Range Interpretation Code Description Data Jayla rce(s) Supporting Document(s) BASO # 0 10*3/uL BASO #: 0 10*3/uL 08/02/19 21 CHARTMAKER ([facility]) ID Date Data Source [id number] 08/02/2020 12:00:00 AM EST CHARTMAKER ([facility]) Name Value Range Interpretation Code Description Data Jayla rce(s) Supporting Document(s) EOS # 0 10*3/uL EOS #: 0 10*3/uL 08/02/2020 TRENT RTMAKER ([facility]) ID Date Data Source [id number] 08/02/2020 12:00:00 AM EST CHARTMAKER ([facility]) Name Value Range Interpretation Code Description Data Jayla rce(s) Supporting Document(s) MONO # 0.4 10*3uL MONO #: 0.4 10*3/uL 08/02 CHARTMAKER ([facility]) ID Date Data Source [id number] 08/02/2020 12:00:00 AM EST [facility] ([facility] Name Value Range Interpretation Code Description Data Jayla rce(s) Supporting Document(s) LYMPH # 1.6 10*uL LYMPH #: 1.6 10*3/uL 08/02/2020 CHARTMAKER ([facility]) ID Date Data Source 08/02/2020 12:00:00 AM EST CHARTMAKER ([facility]) Name Value Range Interpretation Code Description Data Jayla rce(s) Supporting Document(s) NEUT # 1.9 10*uL NEUT #: 1.9 10*3/uL 08/02 CHARTMAKER ([facility]) ID Date Data Source [id number]/02/2020 12:00:00 AM EST CHARTMAKER ([facility]) Name Value Range Interpretation Code Description Data Jayla rce(s) Supporting Document(s) BASO % 1.1 % BASO %: 1.1 % 08/02/2020 CHARTM GUDELIA ([facility]) ID Date Data Source [id number]/02/2020 12:00:00 AM EST CHARTMAKER ([facility]) Name Value Range Interpretation Code Description Data Jayla rce(s) Supporting Document(s) EOS % 0.4 % EOS %: 0.4 % 08/02/2020 CHARTMA KER ([facility]) ID Date Data Source [id number] 08/02/2020 12:00:00 AM EST CHARTMAKER ([facility]) Name Value Range Interpretation Code Description Data Jayla rce(s) Supporting Document(s) MONO % 9.7 % MONO %: 9.7 % 08/02/2020 CHARTM GUDELIA ([facility]) ID Date Data Source [id number] 08/02/2020 12:00:00 AM EST CHARTMAKER ([facility]) Name Value Range Interpretation Code Description Data Jayla rce(s) Supporting Document(s) LYMPH % 40.9 % LYMPH %: 40.9 % 08/02/2020 AUSTYN TMAKER ([facility]) ID Date Data Source [id number] 08/02/2020 12:00:00 AM EST [facility] Name Value Range Interpretation Code Description Data Jayla rce(s) Supporting Document(s) NEUT % 47.9 % NEUT %: 47.9 % 08/02/2020 CHART MAKER ([facility]) ID Date Data Source [id number] 08/02/2020 12:00:00 AM EST [facility] Name Value Range Interpretation Code Description Data Jayla rce(s) Supporting Document(s) MPV 8.8 fL MPV: 8.8 fL 08/02/2020 CHARTMAK ER ([facility]) ID Date Data Source [id number] 08/02/2020 12:00:00 AM EST [facility] Name Value Range Interpretation Code Description Data Jayla rce(s) Supporting Document(s) PLT 279 10*3/uL PLT: 279 10*3/uL 08/02/2020 C HARTMAKER ([facility]) ID Date Data Source [id number] 08/02/2020 12:00:00 AM EST [facility] Name Value Range Interpretation Code Description Data Jayla rce(s) Supporting Document(s) RDW 12.8 % RDW: 12.8 % 08/02/2020 CHARTMAK ER ([facility]) ID Date Data Source [id number] 08/02/2020 12:00:00 AM EST [facility] Name Value Range Interpretation Code Description Data Jayla rce(s) Supporting Document(s) MCHC 34.1 g/dL MCHC: 34.1 g/dL 08/02/2020 AUSTYN TMAKER ([facility]) ID Date Data Source [id number] 08/02/2020 12:00:00 AM EST [facility] Name Value Range Interpretation Code Description Data Jayla rce(s) Supporting Document(s) MCH 28.7 pg MCH: 28.7 pg 08/02/2020 CHARTMA KER ([facility]) ID Date Data Source [id number] 08/02/2020 12:00:00 AM EST CHARTMAKER ([facility]) Name Value Range Interpretation Code Description Data Jayla rce(s) Supporting Document(s) MCV 84.4 fL MCV: 84.4 fL 08/02/2020 CHARTMA KER ([facility]) ID Date Data Source [id number] 08/02/2020 12:00:00 AM EST CHARTMAKER ([facility]) Name Value Range Interpretation Code Description Data Jayla rce(s) Supporting Document(s) HCT 38.6 % HCT: 38.6 % 08/02/2020 CHARTMAK ER ([facility]) ID Date Data Source [id number] 08/02/2020 12:00:00 AM EST CHARTMAKER ([facility]) Name Value Range Interpretation Code Description Data Jayla rce(s) Supporting Document(s) HGB 13.1 g/dL HGB: 13.1 g/dL 08/02/2020 CHART MAKER ([facility]) ID Date Data Source [id number] 08/02/2020 12:00:00 AM EST CHARTMAKER ([facility]) Name Value Range Interpretation Code Description Data Jayla rce(s) Supporting Document(s) RBC 4.57 10*6/uL RBC: 4.57 10*6/uL 2020 CHARTMAKER ([facility]) ID Date Data Source [id number] 08/02/2020 12:00:00 AM EST CHARTMAKER ([facility]) Name Value Range Interpretation Code Description Data Jayla rce(s) Supporting Document(s) WBC 3.9 10*3/uL WBC: 3.9 10*3/uL 08/02/2020 C HARTMAKER ([facility]) ID Date Data Source [id number] 08/02/2020 12:00:00 AM EST CHARTMAKER ([facility]) Name Value Range Interpretation Code Description Data Jayla rce(s) Supporting Document(s) GFR ( AMER) >60 GFR ( AMER ): >60 08/02/2020 CHARTMAKER ([facility]) ID Date Data Source [id number] 08/02/2020 12:00:00 AM EST CHARTMAKER ([facility]) Name Value Range Interpretation Code Description Data Jayla rce(s) Supporting Document(s) GFR >60 GFR : >60 08/02/2020 CHARTMAKER ([facility]) ID Date Data Source [id number] 08/02/2020 12:00:00 AM EST CHARTMAKER ([facility]) Name Value Range Interpretation Code Description Data Jayla rce(s) Supporting Document(s) ALT (SGPT) 28 U/L ALT (SGPT): 28 U/L CHARTMAKER ([facility]) ID Date Data Source [id number] 08/02/2020 12:00:00 AM EST CHARTMAKER ([facility]) Name Value Range Interpretation Code Description Data Jayla rce(s) Supporting Document(s) AST (SGOT) 13 U/L AST (SGOT): 13 U/L CHARTMAKER ([facility]) ID Date Data Source [id number] 08/02/2020 12:00:00 AM EST CHARTMAKER ([facility]) Name Value Range Interpretation Code Description Data Jayla rce(s) Supporting Document(s) BILIRUBIN,TOTAL 0.9 mg/dL BILIRUBIN,TOTAL: 0. 9 mg/dL 08/02/2020 CHARTMAKER ([facility]) ID Date Data Source [id number] 08/02/2020 12:00:00 AM EST CHARTMAKER ([facility]) Name Value Range Interpretation Code Description Data Jayla rce(s) Supporting Document(s) ALKALINE PHOSPHATASE 80 U/L ALKALINE PHOSPH ATASE: 80 U/L 08/02/2020 CHARTMAKER ([facility]) ID Date Data Source [id number] 08/02/2020 12:00:00 AM EST CHARTMAKER ([facility]) Name Value Range Interpretation Code Description Data Jayla rce(s) Supporting Document(s) ALB/GLOB RATIO 1.4 RATIO ALB/GLOB RATIO: 1.4 RATIO 08/02/2020 CHARTMAKER ([facility]) ID Date Data Source [id number] 08/02/2020 12:00:00 AM EST CHARTMAKER ([facility] Name Value Range Interpretation Code Description Data Jayla rce(s) Supporting Document(s) GLOBULIN 2.9 g/dL GLOBULIN: 2.9 g/dL 021 CHARTMAKER ([facility]) ID Date Data Source [id number] 08/02/2020 12:00:00 AM EST CHARTMAKER ([facility]) Name Value Range Interpretation Code Description Data Jayla rce(s) Supporting Document(s) ALBUMIN 4.2 g/dL ALBUMIN: 4.2 g/dL 08/02/19 CHARTMAKER ([facility]) ID Date Data Source [id number] 08/02/2020 12:00:00 AM EST CHARTMAKER ([facility]) Name Value Range Interpretation Code Description Data Jayla rce(s) Supporting Document(s) TOTAL PROTEIN 7.1 g/dL TOTAL PROTEIN: 7.1 g/ dL 08/02/2020 CHARTMAKER ([facility]) ID Date Data Source [id number] 08/02/2020 12:00:00 AM EST CHARTMAKER ([facility]) Name Value Range Interpretation Code Description Data Jayla rce(s) Supporting Document(s) CALCIUM 8.9 mg/dL CALCIUM: 8.9 mg/dL 021 CHARTMAKER ([facility]) ID Date Data Source [id number] 08/02/2020 12:00:00 AM EST CHARTMAKER ([facility]) Name Value Range Interpretation Code Description Data Jayla rce(s) Supporting Document(s) Glucose [Mass/volume] in Serum or Plasma 84 mg/dL Glucose: 84 mg/dL 08/02/2020 CHARTMAKER ([facility]) ID Date Data Source [id number] 08/02/2020 12:00:00 AM EST CHARTMAKER ([facility]) Name Value Range Interpretation Code Description Data Jayla rce(s) Supporting Document(s) BUN/CREAT RATIO 18.2 RATIO BUN/CREAT RATIO: 18 .2 RATIO 08/02/2020 CHARTMAKER ([facility]) ID Date Data Source [id number] 08/02/2020 12:00:00 AM EST CHARTMAKER ([facility]) Name Value Range Interpretation Code Description Data Jayla rce(s) Supporting Document(s) Creatinine 0.66 mg/dL Creatinine: 0.66 mg/dL CHARTMAKER ([facility]) ID Date Data Source [id number] 08/02/2020 12:00:00 AM EST CHARTMAKER ([facility]) Name Value Range Interpretation Code Description Data Jayla rce(s) Supporting Document(s) UREA NITROGEN 12 mg/dL UREA NITROGEN: 12 mg/ dL 08/02/2020 CHARTMAKER ([facility]) ID Date Data Source [id number] 08/02/2020 12:00:00 AM EST CHARTMAKER ([facility]) Name Value Range Interpretation Code Description Data Jayla rce(s) Supporting Document(s) ANION GAP 10 mmol/L ANION GAP: 10 mmol/L 08/02 CHARTMAKER ([facility]) ID Date Data Source [id number] 08/02/2020 12:00:00 AM EST CHARTMAKER ([facility]) Name Value Range Interpretation Code Description Data Jayla rce(s) Supporting Document(s) CO2 28 mmol/L CO2: 28 mmol/L 08/02/2020 CHART MAKER ([facility]) ID Date Data Source [id number] 08/02/2020 12:00:00 AM EST CHARTMAKER ([facility]) Name Value Range Interpretation Code Description Data Jayla rce(s) Supporting Document(s) CHLORIDE 105 mmol/L CHLORIDE: 105 mmol/L 08/02 CHARTMAKER ([facility]) ID Date Data Source [id number] 08/02/2020 12:00:00 AM EST CHARTMAKER ([facility]) Name Value Range Interpretation Code Description Data Jayla rce(s) Supporting Document(s) Potassium 4.1 mmol/L Potassium: 4.1 mmol/L 08/02/2020 CHARTMAKER ([facility]) ID Date Data Source [id number] 08/02/2020 12:00:00 AM EST CHARTMAKER ([facility]) Name Value Range Interpretation Code Description Data Jayla rce(s) Supporting Document(s) SODIUM 143 mmol/L SODIUM: 143 mmol/L CHARTMAKER ([facility]) ID Date Data Source [id number] 08/02/2020 12:00:00 AM EST CHARTMAKER ([facility]) Name Value Range Interpretation Code Description Data Jayla rce(s) Supporting Document(s) TSH,ULTRASENSITIVE @ 0.826 mIU/L TSH,ULT RASENSITIVE @: 0.826 mIU/L 08/02/2020 CHARTFLKER ([facility]) ID Date Data Source [id number] 08/02/2020 12:00:00 AM EST CHARTMAKER ([facility]) Name Value Range Interpretation Code Description Data Jayla rce(s) Supporting Document(s) Glucose [Mass/volume] in Serum or Plasma Negative Glucose: Negative 08/02/2020 [facility]) ID Date Data Source [id number] 08/02/2020 12:00:00 AM EST CHARTMAKER ([facility]) Name Value Range Interpretation Code Description Data Jayla rce(s) Supporting Document(s) Bilirubin.total [Mass/volume] in Serum or Plasma Negative Bilirubin: Negative 08/02/2020 CHARTFLKER ([facility]) ID Date Data Source [id number] 08/02/2020 12:00:00 AM EST CHARTMAKER ([facility]) Name Value Range Interpretation Code Description Data Jayla rce(s) Supporting Document(s) Ketone Negative Ketone: Negative 08/02/2020 [facility] RTMAKER [facility]) ID Date Data Source [id number] 08/02/2020 12:00:00 AM EST CHARTMAKER ([facility]) Name Value Range Interpretation Code Description Data Jayla rce(s) Supporting Document(s) Specific gravity of Urine 1.020 Specific G ravity: 1.020 08/02/2020 [facility] ([facility]) ID Date Data Source [id number] 08/02/2020 12:00:00 AM EST CHARTMAKER ([facility]) Name Value Range Interpretation Code Description Data Jayla rce(s) Supporting Document(s) Hemoglobin [Presence] in Urine Hemol +++ Blood (Urine): Hemol +++ 08/02/2020 CHARTMAKER ([facility]) ID Date Data Source [id number] 08/02/2020 12:00:00 AM EST CHARTMAKER ([facility]) Name Value Range Interpretation Code Description Data Jayla rce(s) Supporting Document(s) pH of Blood 6.5 pH: 6.5 08/02/2020 CHARTMAKER ([facility]) ID Date Data Source [id number] 08/02/2020 12:00:00 AM EST CHARTMAKER ([facility]) Name Value Range Interpretation Code Description Data Jayla rce(s) Supporting Document(s) Protein [Mass/volume] in Serum or Plasma +1 Protein: +1 08/02/2020 CHARTMAKER ([facility]) ID Date Data Source [id number] 08/02/2020 12:00:00 AM EST CHARTMAKER ([facility]) Name Value Range Interpretation Code Description Data Jayla rce(s) Supporting Document(s) Urobilinogen [Mass/volume] in Urine 2 mg/dL Urobilinogen: 2 mg/dL 08/02/2020 CHARTMAKER ([facility]) ID Date Data Source [id number] 08/02/2020 12:00:00 AM EST CHARTMAKER ([facility]) Name Value Range Interpretation Code Description Data Jayla rce(s) Supporting Document(s) Nitrite [Presence] in Urine Negative Nitrite: Negative 08/02/2020 CHARTMAKER ([facility]) ID Date Data Source [id number] 08/02/2020 12:00:00 AM EST CHARTMAKER ([facility]) Name Value Range Interpretation Code Description Data Jayla rce(s) Supporting Document(s) Leukocytes [#/volume] in Blood Negative Leuko cytes: Negative 08/02/2020 CHARTMAKER ([facility]) ID Date Data Source [id number] 08/02/2020 12:00:00 AM EST [facility] Name Value Range Interpretation Code Description Data Jayla rce(s) Supporting Document(s) 2019 Novel Coronavirus RNA Negative [facility] This lab was ordered by [facility] and reported by [facility]. ID Date Data Source [id number], SERUM QUANTITATIVE 07/05/2020 12:00:00 AM EST eCW1 ([facility]) Name Value Range Interpretation Code Description Data Jayla rce(s) Supporting Document(s) 5 HCG, SERUM QUANTITATIVE [facility] ( [facility]) ID Date Data Source [id number] 03/30/2020 01:10:00 [place] [address] HEALTH INFORMATION MANAGEMENT OR Report : [id number] Signed Patient: Bruna Steven Acct:[id number] U nit: [id number] : 2000 Loc: OR Room/Bed: Age/Sex: 19 / F ADM Date: 03/30/20 cc: PCP,Funmilayo Gant MD SS Operative Report Report Date of Procedure: 03/30/20 SURGEON (list):: Funmilayo Ortiz MD Was an Printing Press Operator Apprentice used?: No PREOPERATIVE DIAGNOSIS:: 1. Intrauterine @ 8w6d gestation 2. Missed POSTOPERATIVE DIAGNOSIS:: The same OPERATIVE PROCEDURE:: Suction dilation and curettage SPECIMEN REMOVED: Yes WHAT SPECIMEN WAS REMOVED?: Products of conception WAS SPECIMEN SENT TO PATHOLOGY?: Yes ANESTHESIA:: MAC ANESTHESIOLOGIST:: Miguel A Nava CRNA Esitmated Blood Loss:: Less than 100 ml (20 cc) COMPLICATIONS:: None OPERATIVE INDICATIONS:: 19 y/o with missed at 8w6d gestation opting for definitive surgical management. OPERATIVE FINDINGS:: 10 cm anteverted uterus DESCRIPTION OF PROCEDURE:: The patient was taken to the operating room where general anesthesia was administered and found to be adequate. The patient was placed in the dorsal lithotomy position. She was then prepped with Betadine and draped in usual sterile fashion. A weighted speculum was placed in the posterior fornix of the vagina. The anterior vaginal wall was elevated with a right angle retractor. The anterior lip of the cervix was grasped with a single tooth tenaculum. The cervical oswas dilated to accommodate a 16 mm Mariano dilator. The uterus was sounded to 10 cm. The #8 curved suction curette was placed gently into the fundus. The suction machine was turned on and 5 passes ofthe suction curette were used to clear the uterus. Sharp curettage was done until a good uterine crywas appreciated. All instruments were then removed from the patients vagina. All sponge, lap and instrument counts were reported to be correct times two. The patient was awakened from anesthesia and transferred to the recovery room in stable condition. Implants used?: No Charges Complete: N/A Signed By:Funmilayo Ortiz MD <<Signature on File>> Signed Date/Time: 03/30/201312 Co-Signer: Co-Signed Date/Time: Initializing User: Funmilayo Ortiz MD 11/13 09 09 Name Value Range Interpretation Code Description Data Jayla rce(s) Supporting Document(s) ID Date Data Source [id number] 04/03/2020 01:40:00 PM EDT [facility] Run: 04/03/20 1340 INTERFACED REPORT Name: Bruna Steven Age/Sex: 19/F Location: OR Acct: [id number] Unit: [id number] Status: [facility] Room/Bed: Re03/30/20 Disch: Att Dr: Funmilayo Ortiz MD Spec Num: [id number] Recd: 03/30/20 Status: BENJAMIN Greenberg Num: [id number] SpType: SURGICAL Sub Dr: Funmilayo Ortiz MD Missed Suction D&C ProcGROSS AND MICROSCOPIC - L4 8.6 weeks gestation Products of conception The specimen received in formalin is labeled with the patients name and [id number] of [id number] consists of multiple pieces of yellow-pink to pink-red tissue. The specimen is filtered and measures approximately 7 x 7 x 1.5 cm in aggregate. A sales representative adding machines sample is submitted. (03-30-20 /cjs) Products of conception, Suction D&C: - Products of conception (chorionic villi) identified /cjs 04-03-20 665 Signed (signature on file) Enrrique Alas MD 04/03/20 134Gildardo, Stacie Pat END OF REPORT Name Value Range Interpretation Code Description Data Jayla rce(s) Supporting Document(s) ID Date Data Source [id number] 03/30/2020 12:03:00 PM EDT [facility] Name Value Range Interpretation Code Description Data Jayla rce(s) Supporting Document(s) SARS-CoV-2 (COVID-19) N gene [Presence] in Nasopharynx by JACKIE with probe detection [facility] This lab was ordered by [facility] and reported by [facility]. ID Date Data Source [id number] 03/30/2020 07:23:00 PM EDT [facility] [place] [facility] Priority Surger y/Appointment Date: 03/30/2020 Support person(if yes for who): N Name Value Range Interpretation Code Description Data Jayla rce(s) Supporting Document(s) COVID 19 (RHEONIX) NOT-DETECTED NOTDETECTED [facility] The [employer] COVID-19 MDx Assay is an en dpoint RT-PCR assay intended for the qualitative detection of nucleic acid from SARS-CoV-2 in nasopharyngeal swabs. COVID testing using the [employer] analyzer was developed for the purpose of diagnostic testing during a declared public health emergency and has Emergency Use Authorization (EUA) from the FDA. The possibility of a false negative result should be considered if the patient's recent exposures or clinical presentation indicate that COVID-19 is likely, and diagnostic tests for other causes of illness (e.g., other respiratory illness) are negative. If COVID-19 is still suspected based on exposure history together with other clinical findings, re-testing should be considered by healthcare providers in consultation with public health authorities. ID Date Data Source [id number] 03/30/2020 10:40:00 AM EDT [facility] Name Value Range Interpretation Code Description Data Jayla rce(s) Supporting Document(s) SODIUM 139 MEQ/L 135-145 N [facility] POTASSIUM 4.0 MEQ/L 3.5-5.3 N [facility] CHLORIDE 106 MEQ/L 94-110 N [facility] CARBON DIOXIDE 24 MEQ/L 22-33 N [facility] ANION GAP 13 5-16 N [facility] BLOOD UREA NITRO 6 MG/DL 7-25 L [facility] CREATININE 0.5 MG/DL 0.6-1.4 L [facility] GFR > 90.0 ML/MIN [facility] Stage G1 - Normal or high kidney functi on The GFR is an estimate of the Glomerular Filtration Rate. It is an aid to assess a patient's renal function. It is not a conclusive diagnosis of kidney disease. GFR normal is >=90 The MDRD GFR calculation is considered valid between the ages of 18 and 75 years only. BUN/CREAT RATIO 12 8-36 N [facility] GLUCOSE 79 MG/DL 70-100 N [facility] CA 9.1 MG/DL 8.7-10.5 N [facility] ID Date Data Source [id number] 03/14/2020 11:25:00 AM EDT [facility] Name Value Range Interpretation Code Description Data Jayla rce(s) Supporting Document(s) CHLAMYDIA, GENITAL NEGATIVE NEGATIVE [facility] GC, Genital NEGATIVE NEGATIVE [facility] ID Date Data Source [id number] 03/14/2020 11:52:00 AM EDT [facility] Name Value Range Interpretation Code Description Data Jayla rce(s) Supporting Document(s) GOPI BY DNA PROBE NEGATIVE NEGATIVE [facility] GARDNERELLA BY DNA PROBE NEGATIVE NEGATIVE [facility] TRICHOMONAS BY DNA PROBE NEGATIVE NEGATIVE [facility] TESTING PERFORMED BY NUCLEIC ACID HYBRI DIZATION ID Date Data Source [id number] 03/12/2020 02:41:00 PM EDT [facility] Run: 03/14/20 0759 INTERFACED REPORT Name: Bruna Steven Age/Sex: 19/F Location: [facility] Acct: [id number] Unit: [id number] Status: REG REF Room/Bed: Re03/12/20 Disch: Att Dr: Tiffany Mcnamara Specimen #: [id number] Ordered : 03/12/20 Collected : 03/12/20 By: Received: 03/12/20 By: ABENA Source: URINE CC Specimen Description: Procedure Result - COLONY COUNT Final COLONY COUNT LESS THAN 1,000 CFU/ML URINE CULTURE Final NO GROWTH 24 HOURS NO GROWTH 48 HOURS URINE CULTURE Preliminary (Corrected) NO GROWTH 24 HOURS END OF REPORT Name Value Range Interpretation Code Description Data Jayla rce(s) Supporting Document(s) WHITE BLOOD COUNT 8.74 10^3/uL 4.00-10.50 N [facility] RED BLOOD COUNT 4.22 10^6/uL 3.90-5.20 N [facility] HEMOGLOBIN 12.3 G/DL 11.5-15.6 N [facility] HEMATOCRIT 35.3 % 35.0-46.0 N [facility] MCV 83.6 FL 80.0-100.0 N [facility] MCH 29.1 PG 27.0-34.0 N [facility] MCHC 34.8 G/DL 32-36 N [facility] RDW 12.8 % 11.5-14.5 N [facility] PLATELET COUNT 298 10^3/uL 130-400 N [facility] MPV 9.9 FL 8.7-13.2 N [facility] ID Date Data Source [id number] 03/12/2020 02:43:00 PM EDT [facility] Run: 03/14/20 0759 INTERFACED REPORT Name: Bruna Steven Age/Sex: 19/F Location: [facility] Acct: [id number] Unit: [id number] Status: REG REF Room/Bed: Re03/12/20 Disch: Att Dr: Tiffany Mcnamara Specimen #: [id number] Ordered : 03/12/20 Collected : 03/12/20 By: Received: 03/12/20 By: ABENA Source: URINE CC Specimen Description: Procedure Result - COLONY COUNT Final COLONY COUNT LESS THAN 1,000 CFU/ML URINE CULTURE Final NO GROWTH 24 HOURS NO GROWTH 48 HOURS URINE CULTURE Preliminary (Corrected) NO GROWTH 24 HOURS END OF REPORT Name Value Range Interpretation Code Description Data Jayla rce(s) Supporting Document(s) COLOR,UR STRAW YELLOW [facility] APPEARANCE,UR CLEAR CLEAR [facility] PH,UR 7.0 5.0-8.0 [facility] SPECIFIC GRAVITY,UR 1.004 1.002-1.035 N [facility] PROTEIN,UR NEGATIVE MG/DL NEGATIVE [facility] GLUCOSE, UR NEGATIVE MG/DL NEGATIVE [facility] KETONES,UR NEGATIVE MG/DL NEGATIVE [facility] OCCULT BLOOD,UR NEGATIVE NEGATIVE [facility] NITRATE,UR NEGATIVE NEGATIVE [facility] LEUKOCYTE ESTERASE ,UR NEGATIVE NEGATIVE [facility] BILIRUBIN,UR NEGATIVE NEGATIVE [facility] UROBILINOGEN,UR 0.2-1.0 EU MG/DL NEG-0-1.0 [facility] ID Date Data Source [id number] 03/12/2020 04:13:00 PM EDT [facility] Run: 03/14/20 0759 INTERFACED REPORT Name: Bruna Steven Age/Sex: Location: [facility] Acct: [id number] Unit: [id number] Status: REG REF Room/Bed: Re03/12/20 Disch: Kasey Dr: Tiffany Mcnamara Specimen #: [id number] Ordered : 03/12/20 Collected : 03/12/20 By: Received: 03/12/20 By: ABENA Source: URINE CC Specimen Description: Procedure Result - COLONY COUNT Final COLONY COUNT LESS THAN 1,000 CFU/ML URINE CULTURE Final NO GROWTH 24 HOURS NO GROWTH 48 HOURS URINE CULTURE Preliminary (Corrected) NO GROWTH 24 HOURS END OF REPORT Name Value Range Interpretation Code Description Data Jayla rce(s) Supporting Document(s) GLUCOSE 74 MG/DL 70-100 N [facility] ID Date Data Source [id number] 03/12/2020 04:26:00 PM EDT [employer] [facility] Run: 03/14/20 0759 INTERFACED REPORT Name: Bruna Steven Age/Sex: 19/F Location: [facility] Acct: [id number] Unit: [id number] Status: REG REF Room/Bed: Re03/12/20 Disch: Att Dr: Tiffany Mcnamara Specimen #: [id number] Ordered : 03/12/20 Collected : 03/12/20 By: Received: 03/12/20 By: ABENA Source: URINE CC Specimen Description: Procedure Result - COLONY COUNT Final COLONY COUNT LESS THAN 1,000 CFU/ML URINE CULTURE Final NO GROWTH 24 HOURS NO GROWTH 48 HOURS URINE CULTURE Preliminary (Corrected) NO GROWTH 24 HOURS END OF REPORT Name Value Range Interpretation Code Description Data Jayla rce(s) Supporting Document(s) BLOOD TYPE [facility] ANTIBODY SCREEN NEGATIVE [facility] ID Date Data Source [id number] 03/13/2020 03:09:00 PM EDT [facility] Run: 03/14/20 0759 INTERFACED REPORT Name: Bruna Steven Age/Sex: / Location: [facility] Acct: [id number] Unit: [id number] Status: REG REF Room/Bed: Re03/12/20 Disch: Kasey Dr: Tiffany Mcnamara Specimen #: [id number] Ordered : 03/12/20 Collected : 03/12/20 By: Received: 03/12/20 By: ABENA Source: URINE CC Specimen Description: Procedure Result - COLONY COUNT Final COLONY COUNT LESS THAN 1,000 CFU/ML URINE CULTURE Final NO GROWTH 24 HOURS NO GROWTH 48 HOURS URINE CULTURE Preliminary (Corrected) NO GROWTH 24 HOURS END OF REPORT Name Value Range Interpretation Code Description Data Jayla rce(s) Supporting Document(s) RAPID PLASMA REAGIN NON-REACTIVE NONREACTIVE [facility] Test performed by charcoal methodology ID Date Data Source [id number] 03/14/2020 07:29:00 AM EDT [facility] Run: 03/14/20 0759 INTERFACED REPORT Name: Bruna Steven Age/Sex: 19/F Location: [facility] Acct: [id number] Unit: [id number] Status: REG REF Room/Bed: Re03/12/20 Disch: Kasey Dr: Tiffany Mcnamara Specimen #: [id number] Ordered : 03/12/20 Collected : 03/12/20 By: Received: 03/12/20 By: ABENA Source: URINE CC Specimen Description: Procedure Result - COLONY COUNT Final COLONY COUNT LESS THAN 1,000 CFU/ML URINE CULTURE Final NO GROWTH 24 HOURS NO GROWTH 48 HOURS URINE CULTURE Preliminary (Corrected) NO GROWTH 24 HOURS END OF REPORT Name Value Range Interpretation Code Description Data Jayla rce(s) Supporting Document(s) VARICELLA IGG ANTIBODY 335 index Immune >165 [facility] Negative <135 Equivocal 135 - 165 Positive > 165 A positive result generally indicates exposure to the pathogen or administration of specific immunoglobulins, but it is not indication of active infection or stage of disease. Performed at: [facility] [address] [id number] Truck Leasing Manager: Maricel Collins MD, Phone: [phone] ID Date Data Source [id number] 03/14/2020 07:58:00 AM EDT [facility] Run: 03/14/20 0759 INTERFACED REPORT Name: Bruna Steven Age/Sex: 19/F Location: [facility] Acct: [id number] Unit: [id number] Status: REG REF Room/Bed: Re03/12/20 Disch: Att Dr: Tiffany Mcnamara Specimen #: [id number] Ordered : 03/12/20 Collected : 03/12/20 By: Received: 03/12/20 By: ABENA Source: URINE CC Specimen Description: Procedure Result - COLONY COUNT Final COLONY COUNT LESS THAN 1,000 CFU/ML URINE CULTURE Final NO GROWTH 24 HOURS NO GROWTH 48 HOURS URINE CULTURE Preliminary (Corrected) NO GROWTH 24 HOURS END OF REPORT Name Value Range Interpretation Code Description Data Jayla rce(s) Supporting Document(s) ID Date Data Source [id number] 03/12/2020 04:13:00 PM EDT [facility] Run: 03/14/20 0759 INTERFACED REPORT Name: Bruna Steven Age/Sex: 19/F Location: [facility] Acct: [id number] Unit: [id number] Status: REG REF Room/Bed: Re03/12/20 Disch: Att Dr: Tiffany Mcnamara Specimen #: [id number] Ordered : 03/12/20 Collected : 03/12/20 By: Received: 03/12/20 By: ABENA Source: URINE CC Specimen Description: Procedure Result - COLONY COUNT Final COLONY COUNT LESS THAN 1,000 CFU/ML URINE CULTURE Final NO GROWTH 24 HOURS NO GROWTH 48 HOURS URINE CULTURE Preliminary (Corrected) NO GROWTH 24 HOURS END OF REPORT Name Value Range Interpretation Code Description Data Jayla rce(s) Supporting Document(s) GLYCOSYLATED HGBA1C 4.5 % 4.1-6.5 N [facility] ID Date Data Source [id number] 03/14/2020 07:29:00 AM EDT [facility] Run: 03/14/20 0759 INTERFACED REPORT Name: PrimoBruna Age/Sex: 19/F Location: [facility] Acct: [id number] Unit: [id number] Status: REG REF Room/Bed: Re03/12/20 Disch: Att Dr: Tiffany Mcnamara Specimen #: [id number] Ordered : 03/12/20 Collected : 03/12/20 By: Received: 03/12/20 By: ABENA Source: URINE CC Specimen Description: Procedure Result - COLONY COUNT Final COLONY COUNT LESS THAN 1,000 CFU/ML URINE CULTURE Final NO GROWTH 24 HOURS NO GROWTH 48 HOURS URINE CULTURE Preliminary (Corrected) NO GROWTH 24 HOURS END OF REPORT Name Value Range Interpretation Code Description Data Jayla rce(s) Supporting Document(s) HIV SCREEN 4TH GENERATION Non Reactive Non Reactive [facility] Performed at: RN - [facility] [id number] [employer] Manager: Maricel Collins MD, Phone: [phone] ID Date Data Source [id number] 03/12/2020 04:13:00 PM EDT [employer] Run: 03/14/20 0759 INTERFACED REPORT Name: Bruna Steven Age/Sex: 19/ Location: [facility] Acct: [id number] Unit: [id number] Status: REG REF Room/Bed: Re03/12/20 Disch: Att Dr: Tiffany Mcnamara Specimen #: [id number] Ordered : 03/12/20 Collected : 03/12/20 By: Received: 03/12/20 By: ABENA Source: URINE CC Specimen Description: Procedure Result - COLONY COUNT Final COLONY COUNT LESS THAN 1,000 CFU/ML URINE CULTURE Final NO GROWTH 24 HOURS NO GROWTH 48 HOURS URINE CULTURE Preliminary (Corrected) NO GROWTH 24 HOURS END OF REPORT Name Value Range Interpretation Code Description Data Jayla rce(s) Supporting Document(s) HEPATITIS B SURFACE ANTIGEN NEGATIVE NEGATIVE SIPX ID Date Data Source [id number] 03/12/2020 04:13:00 PM EDT [facility] Run: 03/14/20 0759 INTERFACED REPORT Name: Bruna Steven Age/Sex: 19/F Location: [facility] Acct: [id number] Unit: [id number] Status: REG REF Room/Bed: Re03/12/20 Disch: Att Dr: Tiffany Mcnamara Specimen #: [id number] Ordered : 03/12/20 Collected : 03/12/20 By: Received: 03/12/20 By: ABENA Source: URINE CC Specimen Description: Procedure Result - COLONY COUNT Final COLONY COUNT LESS THAN 1,000 CFU/ML URINE CULTURE Final NO GROWTH 24 HOURS NO GROWTH 48 HOURS URINE CULTURE Preliminary (Corrected) NO GROWTH 24 HOURS END OF REPORT Name Value Range Interpretation Code Description Data Jayla rce(s) Supporting Document(s) RUBELLA IGG ANTIBODY [facility]MMUNE [facility] performed by sandwich immunoass ay using direct chemiluminometric technology ID Date Data Source [id number] 01/31/2020 11:08:00 AM EDT [facility] Name Value Range Interpretation Code Description Data Jayla rce(s) Supporting Document(s) HCG QUANTITATIVE 86146 mIU/ml [facility] Rebecca lth Time Post-Conception mIU /mL 7 to 10 days >3 30 days 100 to 500 40 days >2000 10 weeks 50,000 to 140,000 14 weeks 10,000 to 50,000 Maximum levels of hCG can be reached by the second to third months following conception. Levels decrease to as low as 6000 by the third trimester. Testing was performed on the [employer] System. The methodology used detects the intact hCG molecule and free beta subunits of the hCG molecule. Procedure Social History Code Duration Value Status Description Data Source(s ) Smoking 08/02/2020 12:00:00 AM EST Never smoker completed Never s moker CH[facility]MAKER ([facility] Smoking 07/05/2020 12:00:00 AM EST Never Smoker completed Never S moker [facility] Smoking 06/29/2020 12:00:00 AM EST Never Smoker completed Never S moker eCW1 ([facility]) Smoking 06/29/2020 12:00:00 AM EST Never Smoker completed Never S moker eCW1 ([facility]) Smoking 06/18/2020 12:00:00 AM EST Never Smoker completed Never S moker eCW1 ([facility]) Smoking 06/11/2020 12:00:00 AM EST Never Smoker completed Never S moker eCW1 ([facility]) Smoking 06/11/2020 12:00:00 AM EST Never Smoker completed Never S moker eCW1 ([facility]) Vital Signs ID Date Data Source K Name Value Range Interpretation Code Description Data Source(s) Inhaled oxygen concentration 21 % 21 % CHARTMAKER ([facility]) Oxygen saturation in Arterial blood by Pulse oximetry 99 % 99 % CHARTMAKER ([facility]) Body mass index (BMI) [Ratio] 20.2934540235248 kg/m2 20.9728702247912 kg/m2 CHARTMAKER ([facility]) Body weight 110 [lb_av] 110 [lb_av] CHARTMAKER ([facility] Body height 62 [in_i] 62 [in_i] CHARTMAKER ([facility]) Diastolic blood pressure 70 mm[Hg] 70 mm[Hg] CHARTMAKER ([facility]) Systolic blood pressure 102 mm[Hg] 102 mm[Hg] C HARTMAKER ([facility]) Respiratory rate 16 /min 16 /min CHARTMAK ER ([facility]) Heart rate 79 /min 79 /min [facility]MA[facility] ([facility]) Body temperature 97.1 [degF] 97.1 [degF] CHARTM GUDELIA ([facility]) Diastolic blood pressure 64 mm[Hg] 64 mm[Hg] eCW[facility] Systolic blood pressure 106 mm[Hg] 106 mm[Hg] e CW1 ([facility]) Body mass index (BMI) [Ratio] 20.85 kg/m2 20.85 kg/m2 [facility] Body height 62 [in_i] 62 [in_i] eCW1 ([facility]) Body weight 114 [lb_av] 114 [lb_av] eCW1 ([facility]) Diastolic blood pressure 68 mm[Hg] 68 mm[Hg] eCW1 ([facility]) Systolic blood pressure 108 mm[Hg] 108 mm[Hg] e CW1 ([facility]) Body mass index (BMI) [Ratio] 21.58 kg/m2 21.58 kg/m2 W1 ([facility]) Body height 62 [in_i] 62 [in_i] eCW1 ([facility]) Body weight 118 [lb_av] 118 [lb_av] eCW1 ([facility]) Diastolic blood pressure 72 mm[Hg] 72 mm[Hg] eCW1 ([facility]) Systolic blood pressure 102 mm[Hg] 102 mm[Hg] e CW1 ([facility]) Body mass index (BMI) [Ratio] 21.985 kg/m2 21.9 85 kg/m2 W1 ([facility]) Body height 62 [in_i] 62 [in_i] eCW1 ([facility]) Body weight 54.52 kg 54.52 kg W ([facility]) Body weight 120.2 [lb_av] 120.2 [lb_av] eCW1 ([facility]) Diastolic blood pressure 52 mm[Hg] 52 mm[Hg] [facility] Systolic blood pressure 97 mm[Hg] 97 mm[Hg] [facility] Oxygen saturation in Arterial blood by Pulse oximetry 98 % 98 % [facility] Respiratory rate 18 /min 18 /min [facility] ealt Heart rate 71 /min 71 /min [facility] Body temperature 98.4 [degF] 98.4 [degF] [facility] Body weight 53.00 kg 53.00 kg [facility] Body height 157.48 cm 157.48 cm [facility]
[2020-09-14 21:19] LABS: BASO % 0.4 % (0.0-1.0); EOS % 0.7 % (0.0-3.0); HEMATOCRIT 38.9 % (36.0-47.0); LYMPH # 1.7 10^3/uL (1.5-5.0); LYMPH % 30.6 % (24.0-44.0); MEAN CORPUSCULAR HEMOGLOBIN 27.5 pg (27.0-33.0); MEAN CORPUSCULAR HGB CONC 33.4 g/dl (32.0-36.5); MEAN CORPUSCULAR VOLUME 82.4 fl (80.0-96.0); MONO # 0.6 10^3/uL (0.0-0.8); MONO % 11.4 % (2.0-8.0); NEUTROPHILS # 3.2 10^3/uL (1.5-8.5); NEUTROPHILS % 56.7 % (36.0-66.0); PLATELET COUNT, AUTOMATED 250 10^3/uL (150-450); RED BLOOD COUNT 4.72 10^6/uL (4.00-5.40); WHITE BLOOD COUNT 5.6 10^3/uL (4.0-10.0)
--- OUTSIDE RECORDS SUMMARY | 2020-09-14 21:28 | CCD ---
Author Author [facility] Organization [facility] Address Unknown Phone Unavailable Care Team Providers Care Signal Operator Technical Name Role Phone Funmilayo Ortiz MD Unavailable [...] Unavailable Unavailable Funmilayo Ortiz MD Unavailable Unavailable Tiffayn Aguiar INSTRUMENTATION SPECIALIST Unavailable Unavailable Tiffany Aguiar INSTRUMENTATION SPECIALIST Unavailable Unavailable Tiffany Aguiar INSTRUMENTATION SPECIALIST Unavailable Unavailable Potter, M Yenni INSTRUMENTATION SPECIALIST Unavailable Unavailable Potter, M Yenni INSTRUMENTATION SPECIALIST Unavailable Unavailable Potter, M Yenni INSTRUMENTATION SPECIALIST Unavailable Unavailable Potter, M Yenni INSTRUMENTATION SPECIALIST Unavailable Unavailable Potter, M Yenni INSTRUMENTATION SPECIALIST Unavailable Unavailable Potter, M Yenni INSTRUMENTATION SPECIALIST Unavailable Unavailable Potter, M Yenni INSTRUMENTATION SPECIALIST Unavailable Unavailable Potter, M Yenni INSTRUMENTATION SPECIALIST Unavailable Unavailable Potter, M Yenni INSTRUMENTATION SPECIALIST Unavailable Unavailable Potter, M Yenni INSTRUMENTATION SPECIALIST Unavailable Unavailable Potter, M Yenni INSTRUMENTATION SPECIALIST Unavailable Unavailable Potter, M Yenni INSTRUMENTATION SPECIALIST Unavailable Unavailable Potter, M Yenni INSTRUMENTATION SPECIALIST Unavailable Unavailable Potter, M Yenni INSTRUMENTATION SPECIALIST Unavailable Unavailable Potter, M Yenni INSTRUMENTATION SPECIALIST Unavailable Unavailable Potter, M Yenni INSTRUMENTATION SPECIALIST Unavailable Unavailable Potter, M Yenni INSTRUMENTATION SPECIALIST Unavailable Unavailable Potter, M Yenni INSTRUMENTATION SPECIALIST Unavailable Unavailable Potter, M Yenni INSTRUMENTATION SPECIALIST Unavailable Unavailable Potter, M Yenni INSTRUMENTATION SPECIALIST Unavailable Unavailable Potter, M Yenni INSTRUMENTATION SPECIALIST Unavailable Unavailable Potter, M Yenni INSTRUMENTATION SPECIALIST Unavailable Unavailable Potter, M Yenni INSTRUMENTATION SPECIALIST Unavailable Unavailable Potter, M Yenni INSTRUMENTATION SPECIALIST Unavailable Unavailable Potter, M Yenni INSTRUMENTATION SPECIALIST Unavailable Unavailable Potter, M Yenni INSTRUMENTATION SPECIALIST Unavailable Unavailable Potter, M Yenni INSTRUMENTATION SPECIALIST Unavailable Unavailable Potter, M Yenni INSTRUMENTATION SPECIALIST Unavailable Unavailable Potter, M Yenni INSTRUMENTATION SPECIALIST Unavailable Unavailable Potter, M Yenni INSTRUMENTATION SPECIALIST Unavailable Unavailable Potter, M Yenni INSTRUMENTATION SPECIALIST Unavailable Unavailable Potter, M Yenni INSTRUMENTATION SPECIALIST Unavailable Unavailable Potter, M Yenni INSTRUMENTATION SPECIALIST Unavailable Unavailable Potter, M Yenni INSTRUMENTATION SPECIALIST Unavailable Unavailable Potter, M Yenni INSTRUMENTATION SPECIALIST Unavailable Unavailable Potter, M Yenni INSTRUMENTATION SPECIALIST Unavailable Unavailable Potter, M Yenni INSTRUMENTATION SPECIALIST Unavailable Unavailable Potter, M Yenni INSTRUMENTATION SPECIALIST Unavailable Unavailable Potter, M Yenni INSTRUMENTATION SPECIALIST Unavailable Unavailable Potter, M Yenni INSTRUMENTATION SPECIALIST Unavailable Unavailable Potter, M Yenni INSTRUMENTATION SPECIALIST Unavailable Unavailable Potter, M Yenni INSTRUMENTATION SPECIALIST Unavailable Unavailable Potter, M Yenni INSTRUMENTATION SPECIALIST Unavailable Unavailable Potter, M Yenni INSTRUMENTATION SPECIALIST Unavailable Unavailable Potter, M Yenni INSTRUMENTATION SPECIALIST Unavailable Unavailable Potter, M Yenni INSTRUMENTATION SPECIALIST Unavailable Unavailable Potter, M Yenni INSTRUMENTATION SPECIALIST Unavailable Unavailable Potter, M Yenni INSTRUMENTATION SPECIALIST Unavailable Unavailable Potter, M Yenni INSTRUMENTATION SPECIALIST Unavailable Unavailable Potter, M Yenni INSTRUMENTATION SPECIALIST Unavailable Unavailable Potter, M Yenni INSTRUMENTATION SPECIALIST Unavailable Unavailable Tiffany Aguiardith INSTRUMENTATION SPECIALIST Unavailable Unavailable Irland, R Tiffany PA Unavailable [...] is protected by Article 27-F of the [facility] Public Health law. If you continue you may have access to information: Regarding HIV / AIDS; Provided by facilities licensed or operated by the [facility] Office of Mental Health; or Provided by the [facility] Office for People With Developmental Disabilities. If such information is present, then the following [facility] mandated warning applies: This information has been [...] law may result in a fine or penitentiary sentence or both. A general authorization for the release of medical or other information is NOT sufficient authorization for further disc losure. Allergies and Adverse Reactions Type Description Substance Reaction Status Data Source(s ) Drug allergy No Known Allergies No Known Allergies [facility] Encounters Encounter Providers Location Date Indications Data Source(s ) OutpatientOFFICE/OUTPATIENT VISIT, EST 08/02/2020 Attender: Gutierrez Aguiar NP 08/02/2020 02:50:53 PM EST CHARTMAKER ([facility]) (WC [address]) [address] [place] [address] 07/05/2020 12:00:00 AM EST eCW1 ([facility]) Outpatient [address] [facility] [address] 06/18/2020 12:00:00 AM EST [facility]CW1 ([facility] Unknown [address] [facility] [address] 06/18/2020 12:00:00 AM EST eCW1 ([facility]) Unknown [address] [facility] [address] 06/15/2020 12:00:00 AM EST eCW1 ([facility]) Unknown [address] [facility] [address] 06/14/2020 12:00:00 AM EST eCW1 ([facility]) Outpatient [address] [facility] [address] 06/11/2020 12:00:00 AM EST eCW1 ([facility]) Outpatient Attender: Funmilayo Ortiz MD 03/30 09:39:00 AM EDT - 03/30/2020 01:30:00 PM EDT [id number] [facility] [address] Patient discharged. Outpatient Attender: Funmilayo Ortiz MD 03/28/2020 11:14:00 AM EDT swab [facility] swab Outpatient Attender: Kaye Cuellar CNM 03/13/2020 11:00:00 PM EDT [employer] [facility] [employer] Outpatient Attender: Tiffany MCCARTHY 03/12/2020 01:50:00 P M EDT [facility] Outpatient Attender: Kaye Cuellar ARTUROTiffany 01/31/2020 09:03:00 AM EDT [facility] Functional Status Medications Medication Brand Name Start Date Product Form Dose Route Admi nistrative Instructions Pharmacy Instructions Status Indications Reaction Description Data Source(s) No known medications 08/02/2020 12:00:00 AM EST completed No known medications CHARTMAKER ([facility]) 100 mg/5 mL 06/23/2020 12:00:00 [...] PM EDT UNASSIGNED 640 MG ORAL active [facility] 81 mg 03/14/2020 12:00:00 AM EDT tablet,chewable 30 CHEW ONE TABLET BY MOUTH EVERY DAY CHEW ONE TABLET BY MOUTH EVERY DAY SOLD: 03/16/2020 [facility] ferrous sulfate 325 MG Delayed Release Oral Tablet Linus lauren Sulfate Ferrous Sulfate 10/17/2018 09:14:08 AM EDT UNASSIGNED 325 MG ORAL [facility] Ibuprofen 600 MG Oral Tablet Ibuprofen 10/17/2018 09:14:08 AM EDT TA BLET 600 MG [facility] iron-800 mcg tablet 02/18/2018 12:00:00 AM EDT 1 completed 08/02/2020 CHARTMAKER ([facility]) Insurance Providers Payer name Policy type / Coverage type Policy ID Covered democrat ID Covered democrat's relationship to coughlin Policy [place] Plan Information MAYNOR [id number] SP [id number] 500 [place] [employer] [id number] Commercial Insurance [id number] Medicaid - [employer] [id number] Medica id [id number] ID IDENTIFICATION [id number] Other In surance [id number] [place] O [id number] S [id number] EMEDNY [id number] SP [id number] [place] [id number] SP [id number] MAYNOR [id number] SP [id number] MAYNOR [id number] SP [id number] 500 SELF PAY MAY[place] [id number] SP [id number] 500 SELF PAY [place] [id number] SP [id number] 500 SELF PAY [place] [id number] SP [id number] 500 SELF PAY MAYNOR [id number] SP [id number] 500 MAYNOR [id number] SP [id number] 500 SELF PAY MAYNOR [id number] SP [id number] [place] Care [place] Individual Policy 0 Self 0 [place] Individual Policy 0 Self 0 SELF PAY MAYNOR [id number] SP [id number] [facility]ID [facility] [id number] SP DF [id number] SELF PAY [facility]ICAID [facility] [id number] SP DF [id number] MAYNOR [id number] SP [id number] 500 SELF PAY [place] Individual Policy 0 Self 0 SELF PAY [facility]ICAID [facility] [id number] SP DF [id number] MAYNOR [id number] SP [id number] 500 SELF PAY MEDICAID [facility] [id number] SP DF [id number] MAYNOR [id number] SP [id number] 500 SELF PAY MAYNOR [id number] SP [id number] 500 [facility]ICAID [facility] [id number] SP DF [id number] MAYNOR [id number] SP [id number] 500 MAYNOR UNAVAILABLE UNAVAILA BLE MEDICAID [facility] [id number] SP DF [id number] MAYNOR I [id number] Self [id number] 500 [place] MEDICAID [id number] Ginny [id number] MEDICAID [facility] [id number] SP DF [id number] MEDICAID [facility] [id number] SP DF [id number] [place] [id number] Commercial Insurance [id number] Medicaid - [employer] [id number] Medica id [id number] SELF PAY UNAVAILABLE SP UNAVAILA BLE Medicaid of [place] Other 03 Self 03 Medicaid [facility] Other 03 Self 03 Medicaid - [employer] [id number] Medica id [id number] [place] of [place] Other Self [place] Care [place] Individual Policy Self [place] of [place] Individual Policy Self [id number] 500 [facility] Medicaid Self [employer] [id number] SP [id number] Problems, Conditions, and Diagnoses Code Display Name Description Problem Type Effective Dates Data Source(s) R63.8 Other symptoms and signs concerning food and fluid intake Other symptoms and signs concerning food and fluid intake (R63.8) 08/02/2020 [id number] 08/02/2020 02:50:53 PM EST CHARTMAKER ([facility]) R42 Dizziness and giddiness Dizziness and giddiness (R42) 08/02/2020 [id number] 08/02/2020 02:50:53 PM EST CHARTMAKER ([facility]) N91.2 Amenorrhea Amenorrhea Problem 06/14/2020 12:00:00 AM ES T eCW1 ([facility]) Z34.80 care Supervision of other normal P ronaklem 06/11/2020 12:00:00 AM EST eCW1 ([facility]) O02.1 Missed O02.1 - Missed Diagnosis 0 03/30/2020 09:39:00 AM T [facility] Z34.81 Encounter for supervision of other magy l , first trimester Z34.81 - Encounter for supervision of other normal , first trimester Diagnosis 03/13/2020 11:00:00 PM EDT [facility] N91.1 Secondary amenorrhea N91.1 - Secondary amenorrhea Diag nosis 01/31/2020 09:03:00 AM T [facility] Surgeries/Procedures Procedure Description Date Indications Data Source(s) INFECTIOUS AGENT DETECTION BY NUCLEIC ACID 08/02/2020 08/02/2020 12:00:00 AM EST CHARTMAKER ([facility]) Dilation and curettage of uterus (procedure) 0 12:00:00 PM EDT [facility] Urine culture (procedure) 03/12/2020 12:00:00 AM T [facility] Monocyte percent differential count (procedure) 2019 12:00:00 AM T [facility] Results ID Date Data Source [id number] 08/03/2020 11:52:20 AM EST Laboratory [facility] [...] - CORE MPV 8.8 fL (7.1-10.7) [facility] [place] [facility] [place] - CORE NEUT % 47.9 % (35.0-75.0) [facility] [place] - [facility]ORE LYMPH % 40.9 % (16.0-52.0) [facility] [place] - CORE MONO % 9.7 % (0.0-8.0) H [facility] [place] [facility] [place] - CORE EOS % 0.4 % (0.0-5.0) [facility] [place] [facility] [place] - CORE BASO % 1.1 % (0.0-4.0) [facility] [place] [facility] [place] - CORE NEUT # 1.9 10*3/uL (1.8-7.7) [facility] [place] - CORE LYMPH # 1.6 10*3/uL (1.2-4.8) [facility] [place] - CORE MONO # 0.4 10*3/uL (0.0-0.8) [facility] [place] - CORE Eosinophils [#/volume] in Blood by Automated count 0.0 10*3/uL (0.0-0 .5) [facility] [place] [facility] BASO # 0.0 10*3/uL (0.0-0.2) Laboratory [facility] ID Date Data Source [id number] 08/03/2020 12:11:56 PM EST Laboratory [facility] - CORE Name Value Range Interpretation Code Description Data Jayla rce(s) Supporting Document(s) TSH,ULTRASENSITIVE @ 0.826 mIU/L (0.463-3.980) [facility] [place] [facility] ID Date Data Source [id number] 08/03/2020 12:11:56 PM EST Laboratory [facility] of [facility] [address] Name Value Range Interpretation Code Description Data Jayla rce(s) Supporting Document(s) SODIUM 143 mmol/L (136-145) Laboratory [place] [facility] POTASSIUM 4.1 mmol/L (3.6-5.2) [facility] [place] [facility] CHLORIDE 105 mmol/L (100-108) [facility] [place] [facility] CO2 28 mmol/L (22-31) Laboratory [place] [facility] ANION GAP 10 mmol/L (7-16) Laboratory [place] of [facility] UREA NITROGEN 12 mg/dL (7-24) Laboratory [facility] of [facility] CREATININE 0.66 mg/dL (0.60-1.00) Laboratory [facility] of [facility] BUN/CREAT RATIO 18.2 RATIO (10.0-20.0) Laboratory [place] of [facility] CORE GLUCOSE 84 mg/dL (70-99) Laboratory [place] [facility] CALCIUM 8.9 mg/dL (8.4-10.2) Laboratory [place] of [facility] TOTAL PROTEIN 7.1 g/dL (6.4-8.2) Laboratory [facility] of [facility] ALBUMIN 4.2 g/dL (3.5-4.6) Laboratory [place] of [facility] GLOBULIN 2.9 g/dL (2.7-4.3) Laboratory [place] of [facility] ALB/GLOB RATIO 1.4 RATIO Laboratory [facility] of [facility] ALKALINE PHOSPHATASE 80 U/L (45-117) Laborator y [place] of [facility] BILIRUBIN,TOTAL 0.9 mg/dL (0.0-1.0) Laboratory [facility] of [facility] P[place] NOTE:Total bilirubin results may be falselyelevated in patients taking Eltrombopag. AST (SGOT) 13 U/L (11-39) Laboratory [place] of [employer] ALT (SGPT) 28 U/L (12-78) Laboratory [place] of [facility] GFR >60 ml/min/1.73m2 (>59) Laboratory A lliance of [facility] - [address] GFR ( AMER) >60 ml/min/1.73m2 (>59) Laboratory [place] of [employer] - [address] GFR INTERPRETATION Laboratory [place] of [employer] --NORMAL KIDNEY FUNCTION OR MILD DISEASE - GFR >OR= 60CHRONIC KIDNEY DISEASE - GFR 15 - 59RENAL FAILURE - GFR <15 Est. GFR calculation based on the MDRDstudy equation, which assumes a steadystate for creatinine. Est. GFR should notbe used for medication dosing. ID Date Data Source [id number] 08/02/2020 12:00:00 AM EST CHARTMAKER ([facility]) Name Value Range Interpretation Code Description Data Jayla rce(s) Supporting Document(s) BASO # 0 10*3/uL BASO #: 0 10*3/uL 08/02/19 21 CHARTMAKER ([facility]) ID Date Data Source [id number] 08/02/2020 12:00:00 AM EST CHARTMAKER ([facility]) Name Value Range Interpretation Code Description Data Jayla rce(s) Supporting Document(s) EOS # 0 10*3/uL EOS #: 0 10*3/uL 08/02/2020 TRENT RTMAKER ([facility]) ID Date Data Source [id number] 08/02/2020 12:00:00 AM EST CHARTMAKER ([facility]) Name Value Range Interpretation Code Description Data Jayla rce(s) Supporting Document(s) MONO # 0.4 10*3uL MONO #: 0.4 10*3/uL 08/02 CHARTMAKER ([facility]) ID Date Data Source [id number] 08/02/2020 12:00:00 AM EST CHARTMAKER ([facility]) Name Value Range Interpretation Code Description Data Jayla rce(s) Supporting Document(s) LYMPH # 1.6 10*uL LYMPH #: 1.6 10*3/uL 08/02/2020 CHARTMAKER ([facility]) ID Date Data Source 08/02/2020 12:00:00 AM EST CHARTMAKER ([facility]) Name Value Range Interpretation Code Description Data Jayla rce(s) Supporting Document(s) NEUT # 1.9 10*uL NEUT #: 1.9 10*3/uL 08/02 CHARTMAKER ([facility]) ID Date Data Source [id number]/02/2020 12:00:00 AM EST CHARTMAKER ([facility]) Name Value Range Interpretation Code Description Data Jayla rce(s) Supporting Document(s) BASO % 1.1 % BASO %: 1.1 % 08/02/2020 CHARTM GUDELIA ([facility]) ID Date Data Source [id number]/02/2020 12:00:00 AM EST CHARTMAKER ([facility]) Name Value Range Interpretation Code Description Data Jayla rce(s) Supporting Document(s) EOS % 0.4 % EOS %: 0.4 % 08/02/2020 CHARTMA KER ([facility]) ID Date Data Source [id number] 08/02/2020 12:00:00 AM EST CHARTMAKER ([facility]) Name Value Range Interpretation Code Description Data Jayla rce(s) Supporting Document(s) MONO % 9.7 % MONO %: 9.7 % 08/02/2020 CHARTM GUDELIA ([facility]) ID Date Data Source [id number] 08/02/2020 12:00:00 AM EST CHARTMAKER ([facility]) Name Value Range Interpretation Code Description Data Jayla rce(s) Supporting Document(s) LYMPH % 40.9 % LYMPH %: 40.9 % 08/02/2020 AUSTYN TMAKER ([facility]) ID Date Data Source [id number] 08/02/2020 12:00:00 AM EST [facility] Name Value Range Interpretation Code Description Data Jayla rce(s) Supporting Document(s) NEUT % 47.9 % NEUT %: 47.9 % 08/02/2020 CHART MAKER ([facility]) ID Date Data Source [id number] 08/02/2020 12:00:00 AM EST [facility] Name Value Range Interpretation Code Description Data Jayla rce(s) Supporting Document(s) MPV 8.8 fL MPV: 8.8 fL 08/02/2020 CHARTMAK ER ([facility]) ID Date Data Source [id number] 08/02/2020 12:00:00 AM EST [facility]MAKER [facility] Name Value Range Interpretation Code Description Data Jayla rce(s) Supporting Document(s) PLT 279 10*3/uL PLT: 279 10*3/uL 08/02/2020 C HARTMAKER ([facility]) ID Date Data Source [id number] 08/02/2020 12:00:00 AM EST [facility]MAKER [facility] Name Value Range Interpretation Code Description Data Jayla rce(s) Supporting Document(s) RDW 12.8 % RDW: 12.8 % 08/02/2020 CHARTMAK ER ([facility]) ID Date Data Source [id number] 08/02/2020 12:00:00 AM EST [facility]MAKER [facility] Name Value Range Interpretation Code Description Data Jayla rce(s) Supporting Document(s) MCHC 34.1 g/dL MCHC: 34.1 g/dL 08/02/2020 AUSTYN TMAKER ([facility]) ID Date Data Source [id number] 08/02/2020 12:00:00 AM EST [facility]MAKER [facility] Name Value Range Interpretation Code Description Data Jayla rce(s) Supporting Document(s) MCH 28.7 pg MCH: 28.7 pg 08/02/2020 CHARTMA KER ([facility]) ID Date Data Source [id number] 08/02/2020 12:00:00 AM EST CHARTMAKER ([facility]) Name Value Range Interpretation Code Description Data Jayla rce(s) Supporting Document(s) MCV 84.4 fL MCV: 84.4 fL 08/02/2020 CHARTMA KER ([facility]) ID Date Data Source [id number] 08/02/2020 12:00:00 AM EST CHARTMAKER ([facility]) Name Value Range Interpretation Code Description Data Jayla rce(s) Supporting Document(s) HCT 38.6 % HCT: 38.6 % 08/02/2020 CHARTMAK ER ([facility]) ID Date Data Source [id number] 08/02/2020 12:00:00 AM EST CHARTMAKER ([facility]) Name Value Range Interpretation Code Description Data Jayla rce(s) Supporting Document(s) HGB 13.1 g/dL HGB: 13.1 g/dL 08/02/2020 CHART MAKER ([facility]) ID Date Data Source [id number] 08/02/2020 12:00:00 AM EST CHARTMAKER ([facility]) Name Value Range Interpretation Code Description Data Jayla rce(s) Supporting Document(s) RBC 4.57 10*6/uL RBC: 4.57 10*6/uL 2020 CHARTMAKER ([facility]) ID Date Data Source [id number] 08/02/2020 12:00:00 AM EST CHARTMAKER ([facility]) Name Value Range Interpretation Code Description Data Jayla rce(s) Supporting Document(s) WBC 3.9 10*3/uL WBC: 3.9 10*3/uL 08/02/2020 C HARTMAKER ([facility]) ID Date Data Source [id number] 08/02/2020 12:00:00 AM EST CHARTMAKER ([facility]) Name Value Range Interpretation Code Description Data Jayla rce(s) Supporting Document(s) GFR ( AMER) >60 GFR ( AMER ): >60 08/02/2020 CHARTMAKER ([facility]) ID Date Data Source [id number] 08/02/2020 12:00:00 AM EST CHARTMAKER ([facility]) Name Value Range Interpretation Code Description Data Jayla rce(s) Supporting Document(s) GFR >60 GFR : >60 08/02/2020 CHARTMAKER ([facility]) ID Date Data Source [id number] 08/02/2020 12:00:00 AM EST CHARTMAKER ([facility]) Name Value Range Interpretation Code Description Data Jayla rce(s) Supporting Document(s) ALT (SGPT) 28 U/L ALT (SGPT): 28 U/L CHARTMAKER ([facility]) ID Date Data Source [id number] 08/02/2020 12:00:00 AM EST CHARTMAKER ([facility]) Name Value Range Interpretation Code Description Data Jayla rce(s) Supporting Document(s) AST (SGOT) 13 U/L AST (SGOT): 13 U/L [facility]ARTMAKER ([facility]) ID Date Data Source [id number] 08/02/2020 12:00:00 AM EST CHARTMAKER ([facility]) Name Value Range Interpretation Code Description Data Jayla rce(s) Supporting Document(s) BILIRUBIN,TOTAL 0.9 mg/dL BILIRUBIN,TOTAL: 0. 9 mg/dL 08/02/2020 CHARTMAKER ([facility]) ID Date Data Source [id number] 08/02/2020 12:00:00 AM EST CHARTMAKER ([facility]) Name Value Range Interpretation Code Description Data Jayla rce(s) Supporting Document(s) ALKALINE PHOSPHATASE 80 U/L ALKALINE PHOSPH ATASE: 80 U/L 08/02/2020 CHARTMAKER ([facility]) ID Date Data Source [id number] 08/02/2020 12:00:00 AM EST CHARTMAKER ([facility]) Name Value Range Interpretation Code Description Data Jayla rce(s) Supporting Document(s) ALB/GLOB RATIO 1.4 RATIO ALB/GLOB RATIO: 1.4 RATIO 08/02/2020 CHARTMAKER ([facility]) ID Date Data Source [id number] 08/02/2020 12:00:00 AM EST CHARTMAKER ([facility]) Name Value Range Interpretation Code Description Data Jayla rce(s) Supporting Document(s) GLOBULIN 2.9 g/dL GLOBULIN: 2.9 g/dL 021 CHARTMAKER ([facility]) ID Date Data Source [id number] 08/02/2020 12:00:00 AM EST CHARTMAKER ([facility]) Name Value Range Interpretation Code Description Data Jayla rce(s) Supporting Document(s) ALBUMIN 4.2 g/dL ALBUMIN: 4.2 g/dL 08/02/19 CHARTMAKER ([facility]) ID Date Data Source [id number] 08/02/2020 12:00:00 AM EST CHARTMAKER ([facility]) Name Value Range Interpretation Code Description Data Jayla rce(s) Supporting Document(s) TOTAL PROTEIN 7.1 g/dL TOTAL PROTEIN: 7.1 g/ dL 08/02/2020 CHARTMAKER ([facility]) ID Date Data Source [id number] 08/02/2020 12:00:00 AM EST CHARTMAKER ([facility]) Name Value Range Interpretation Code Description Data Jayla rce(s) Supporting Document(s) CALCIUM 8.9 mg/dL CALCIUM: 8.9 mg/dL 021 CHARTMAKER ([facility]) ID Date Data Source [id number] 08/02/2020 12:00:00 AM EST CHARTMAKER ([facility]) Name Value Range Interpretation Code Description Data Jayla rce(s) Supporting Document(s) Glucose [Mass/volume] in Serum or Plasma 84 mg/dL Glucose: 84 mg/dL 08/02/2020 CHARTMAKER ([facility]) ID Date Data Source [id number] 08/02/2020 12:00:00 AM EST CHARTMAKER ([facility]) Name Value Range Interpretation Code Description Data Jayla rce(s) Supporting Document(s) BUN/CREAT RATIO 18.2 RATIO BUN/CREAT RATIO: 18 .2 RATIO 08/02/2020 CHARTMAKER ([facility]) ID Date Data Source [id number] 08/02/2020 12:00:00 AM EST CHARTMAKER ([facility]) Name Value Range Interpretation Code Description Data Jayla rce(s) Supporting Document(s) Creatinine 0.66 mg/dL Creatinine: 0.66 mg/dL CHARTMAKER ([facility]) ID Date Data Source [id number] 08/02/2020 12:00:00 AM EST CHARTMAKER ([facility]) Name Value Range Interpretation Code Description Data Jayla rce(s) Supporting Document(s) UREA NITROGEN 12 mg/dL UREA NITROGEN: 12 mg/ dL 08/02/2020 CHARTMAKER ([facility]) ID Date Data Source [id number] 08/02/2020 12:00:00 AM EST CHARTMAKER ([facility]) Name Value Range Interpretation Code Description Data Jayla rce(s) Supporting Document(s) ANION GAP 10 mmol/L ANION GAP: 10 mmol/L 08/02 CHARTMAKER ([facility]) ID Date Data Source [id number] 08/02/2020 12:00:00 AM EST CHARTMAKER ([facility]) Name Value Range Interpretation Code Description Data Jayla rce(s) Supporting Document(s) CO2 28 mmol/L CO2: 28 mmol/L 08/02/2020 CHART MAKER ([facility]) ID Date Data Source [id number] 08/02/2020 12:00:00 AM EST CHARTMAKER ([facility]) Name Value Range Interpretation Code Description Data Jayla rce(s) Supporting Document(s) CHLORIDE 105 mmol/L CHLORIDE: 105 mmol/L 08/02 CHARTMAKER ([facility]) ID Date Data Source [id number] 08/02/2020 12:00:00 AM EST CHARTMAKER ([facility]) Name Value Range Interpretation Code Description Data Jayla rce(s) Supporting Document(s) Potassium 4.1 mmol/L Potassium: 4.1 mmol/L 08/02/2020 CHARTMAKER ([facility]) ID Date Data Source [id number] 08/02/2020 12:00:00 AM EST CHARTMAKER ([facility]) Name Value Range Interpretation Code Description Data Jayla rce(s) Supporting Document(s) SODIUM 143 mmol/L SODIUM: 143 mmol/L CHARTMAKER ([facility]) ID Date Data Source [id number] 08/02/2020 12:00:00 AM EST CHARTMAKER ([facility]) Name Value Range Interpretation Code Description Data Jayla rce(s) Supporting Document(s) TSH,ULTRASENSITIVE @ 0.826 mIU/L TSH,ULT RASENSITIVE @: 0.826 mIU/L 08/02/2020 CHARTMNKER ([facility]) ID Date Data Source [id number] 08/02/2020 12:00:00 AM EST CHARTMAKER ([facility]) Name Value Range Interpretation Code Description Data Jayla rce(s) Supporting Document(s) Glucose [Mass/volume] in Serum or Plasma Negative Glucose: Negative 08/02/2020 [facility]) ID Date Data Source [id number] 08/02/2020 12:00:00 AM EST CHARTMAKER ([facility]) Name Value Range Interpretation Code Description Data Jayla rce(s) Supporting Document(s) Bilirubin.total [Mass/volume] in Serum or Plasma Negative Bilirubin: Negative 08/02/2020 CHARTMNKER ([facility]) ID Date Data Source [id number] 08/02/2020 12:00:00 AM EST CHARTMAKER ([facility]) Name Value Range Interpretation Code Description Data Jayla rce(s) Supporting Document(s) Ketone Negative Ketone: Negative 08/02/2020 [facility] RTMAKER [facility]) ID Date Data Source [id number] 08/02/2020 12:00:00 AM EST CHARTMAKER ([facility]) Name Value Range Interpretation Code Description Data Jayla rce(s) Supporting Document(s) Specific gravity of Urine 1.020 Specific G ravity: 1.020 08/02/2020 [facility] ([facility]) ID Date Data Source [id number] 08/02/2020 12:00:00 AM EST CHARTMAKER ([facility]) Name Value Range Interpretation Code Description Data Jayla rce(s) Supporting Document(s) Hemoglobin [Presence] in Urine Hemol +++ Blood (Urine): Hemol +++ 08/02/2020 CHARTMAKER ([facility]) ID Date Data Source [id number] 08/02/2020 12:00:00 AM EST CHARTMAKER ([facility]) Name Value Range Interpretation Code Description Data Jayla rce(s) Supporting Document(s) pH of Blood 6.5 pH: 6.5 08/02/2020 CHARTMAKER ([facility]) ID Date Data Source [id number] 08/02/2020 12:00:00 AM EST CHARTMAKER ([facility]) Name Value Range Interpretation Code Description Data Jayla rce(s) Supporting Document(s) Protein [Mass/volume] in Serum or Plasma +1 Protein: +1 08/02/2020 CHARTMAKER ([facility]) ID Date Data Source [id number] 08/02/2020 12:00:00 AM EST CHARTMAKER ([facility]) Name Value Range Interpretation Code Description Data Jayla rce(s) Supporting Document(s) Urobilinogen [Mass/volume] in Urine 2 mg/dL Urobilinogen: 2 mg/dL 08/02/2020 CHARTMAKER ([facility]) ID Date Data Source [id number] 08/02/2020 12:00:00 AM EST CHARTMAKER ([facility]) Name Value Range Interpretation Code Description Data Jayla rce(s) Supporting Document(s) Nitrite [Presence] in Urine Negative Nitrite: Negative 08/02/2020 CHARTMAKER ([facility]) ID Date Data Source [id number] 08/02/2020 12:00:00 AM EST CHARTMAKER ([facility]) Name Value Range Interpretation Code Description Data Jayla rce(s) Supporting Document(s) Leukocytes [#/volume] in Blood Negative Leuko cytes: Negative 08/02/2020 CHARTMAKER ([facility]) ID Date Data Source [id number] 08/02/2020 12:00:00 AM EST [facility] Name Value Range Interpretation Code Description Data Jayla rce(s) Supporting Document(s) 2019 Novel Coronavirus RNA Negative [facility] This lab was ordered by [facility] are and reported by [facility]. ID Date Data Source [id number], SERUM QUANTITATIVE 07/05/2020 12:00:00 AM EST eCW1 ([facility]) Name Value Range Interpretation Code Description Data Jayla rce(s) Supporting Document(s) 5 HCG, SERUM QUANTITATIVE eCW1 ( [facility]) ID Date Data Source [id number] 03/30/2020 01:10:00 [place] [address] HEALTH INFORMATION MANAGEMENT OR Report : [id number] Signed Patient: Bruna Steven Acct:[id number] U nit: [id number] : 2000 Loc: OR Room/Bed: Age/Sex: 19 / F ADM Date: 03/30/20 cc: PCP,Funmilayo Gant MD SS Operative Report Report Date of Procedure: 03/30/20 SURGEON (list):: Funmilayo Ortiz MD Was an Activated Sludge Attendant used?: No PREOPERATIVE DIAGNOSIS:: 1. Intrauterine @ [...] rce(s) Supporting Document(s) ID Date Data Source [id number] 04/03/2020 01:40:00 PM EDT [facility] Run: 04/03/20 1340 INTERFACED REPORT Name: Bruna Steven Age/Sex: 19/F Location: OR Acct: [id number] Unit: [id number] Status: [facility] Room/Bed: Re03/30/20 Disch: Att Dr: Funmilayo Ortiz MD Spec Num: [id number] Recd: 03/30/20 Status: BENJAMIN Greenberg Num: [id number] SpType: SURGICAL Sub Dr: Funmilayo Ortiz MD Missed Suction D&C ProcGROSS AND MICROSCOPIC - L4 8.6 weeks gestation Products of conception The specimen received in formalin is labeled with the patients name and [id number] of [id number] consists of multiple pieces of yellow-pink to pink-red tissue. The specimen is filtered and measures approximately 7 x 7 x 1.5 cm in aggregate. A service representative sample is submitted. (03-30-20 /cjs) Products of conception, Suction D&C: - Products of conception (chorionic villi) identified /cjs 04-03-20 665 Signed (signature on file) Enrrique Alas MD 04/03/20 134Gildardo, Stacie Pat END OF REPORT Name Value Range Interpretation Code Description Data Jayla rce(s) Supporting Document(s) ID Date Data Source [id number] 03/30/2020 12:03:00 PM EDT [facility] Name Value Range Interpretation Code Description Data Jayla rce(s) Supporting Document(s) SARS-CoV-2 (COVID-19) N gene [Presence] in Nasopharynx by JACKIE with probe detection [facility] This lab was ordered by [facility] and reported by [facility]. ID Date Data Source [id number] 03/30/2020 07:23:00 PM EDT [facility] Reason [place] [facility] Priority Surger y/Appointment Date: 03/30/2020 Support person(if yes for who): N Name Value Range Interpretation Code Description Data Jayla rce(s) Supporting Document(s) COVID 19 (RHEONIX) NOT-DETECTED NOTDETECTED [facility] [employer] COVID-19 MDx Assay is an en dpoint RT-PCR assay intended for the qualitative detection of nucleic acid from SARS-CoV-2 in nasopharyngeal swabs. COVID testing using the [employer] analyzer was developed for the purpose of [...] public health authorities. ID Date Data Source [id number] 03/30/2020 10:40:00 AM EDT [facility] Name Value Range Interpretation Code Description Data Jayla rce(s) Supporting Document(s) SODIUM 139 MEQ/L 135-145 N [facility] POTASSIUM 4.0 MEQ/L 3.5-5.3 N [facility] CHLORIDE 106 MEQ/L 94-110 N [facility] CARBON DIOXIDE 24 MEQ/L 22-33 N [facility] ANION GAP 13 5-16 N [facility] BLOOD UREA NITRO 6 MG/DL 7-25 L [facility] CREATININE 0.5 MG/DL 0.6-1.4 L [facility] GFR > 90.0 ML/MIN [facility] Stage G1 - Normal or high kidney functi on The GFR is an estimate of the Glomerular Filtration Rate. It is an aid to assess a patient's renal function. It is not a conclusive diagnosis of kidney disease. GFR normal is >=90 The MDRD GFR calculation is considered valid between the ages of 18 and 75 years only. BUN/CREAT RATIO 12 8-36 N [facility] GLUCOSE 79 MG/DL 70-100 N [facility] [place] 9.1 MG/DL 8.7-10.5 N [facility] ID Date Data Source [id number] 03/14/2020 11:25:00 AM EDT [facility] Name Value Range Interpretation Code Description Data Jayla rce(s) Supporting Document(s) CHLAMYDIA, GENITAL NEGATIVE NEGATIVE [facility] GC, Genital NEGATIVE NEGATIVE [facility] ID Date Data Source [id number] 03/14/2020 11:52:00 AM EDT [facility] Name Value Range Interpretation Code Description Data Jayla rce(s) Supporting Document(s) GOPI BY DNA PROBE NEGATIVE NEGATIVE [facility] GARDNERELLA BY DNA PROBE NEGATIVE NEGATIVE [facility] TRICHOMONAS BY DNA PROBE NEGATIVE NEGATIVE [facility] TESTING PERFORMED BY NUCLEIC ACID HYBRI DIZATION ID Date Data Source [id number] 03/12/2020 02:41:00 PM EDT [facility] Run: 03/14/20 0759 INTERFACED REPORT Name: Bruna Steven Age/Sex: 19/F Location: [facility] Acct: [id number] Unit: [id number] Status: REG REF Room/Bed: Re03/12/20 Disch: Att Dr: Tiffany Mcnamara Specimen #: [id number] Ordered : 03/12/20 Collected : 03/12/20 By: [...] WHITE BLOOD COUNT 8.74 10^3/uL 4.00-10.50 [address] [facility] RED BLOOD COUNT 4.22 10^6/uL 3.90-5.20 N [facility] th HEMOGLOBIN 12.3 G/DL 11.5-15.6 N [facility] HEMATOCRIT 35.3 % 35.0-46.0 N [facility] MCV 83.6 FL 80.0-100.0 N [facility] MCH 29.1 PG 27.0-34.0 N [facility] MCHC 34.8 G/DL 32-36 N [facility] RDW 12.8 % 11.5-14.5 N [facility] PLATELET COUNT 298 10^3/uL 130-400 N [facility] MPV 9.9 FL 8.7-13.2 N [facility] ID Date Data Source [id number] 03/12/2020 02:43:00 PM EDT [facility] Run: 03/14/20 0759 INTERFACED REPORT Name: Bruna Steven Age/Sex: 19/F Location: [facility] Acct: [id number] Unit: [id number] Status: REG REF Room/Bed: Re03/12/20 Disch: Att Dr: Tiffany Mcnamara Specimen #: [id number] Ordered : 03/12/20 Collected : 03/12/20 By: [...] Jayla rce(s) Supporting Document(s) COLOR,UR STRAW YELLOW [facility] APPEARANCE,UR CLEAR CLEAR [facility] PH,UR 7.0 5.0-8.0 [facility] SPECIFIC GRAVITY,UR 1.004 1.002-1.035 N [facility] PROTEIN,UR NEGATIVE MG/DL NEGATIVE [facility] GLUCOSE, UR NEGATIVE MG/DL NEGATIVE [facility] KETONES,UR NEGATIVE MG/DL NEGATIVE [facility] OCCULT BLOOD,UR NEGATIVE NEGATIVE [facility] NITRATE,UR NEGATIVE NEGATIVE [facility] LEUKOCYTE ESTERASE ,UR NEGATIVE NEGATIVE [facility] BILIRUBIN,UR NEGATIVE NEGATIVE [facility] UROBILINOGEN,UR 0.2-1.0 EU MG/DL NEG-0-1.0 [facility] ID Date Data Source [id number] 03/12/2020 04:13:00 PM EDT [facility] Run: 03/14/20 0759 INTERFACED REPORT Name: Bruna Steven Age/Sex: Location: [facility] Acct: [id number] Unit: [id number] Status: REG REF Room/Bed: Re03/12/20 Disch: Kasey Dr: Tiffany Mcnamara Specimen #: [id number] Ordered : 03/12/20 Collected : 03/12/20 By: [...] Supporting Document(s) GLUCOSE 74 MG/DL 70-100 N [facility] ID Date Data Source [id number] 03/12/2020 04:26:00 PM EDT [facility] Run: 03/14/20 0759 INTERFACED REPORT Name: Bruna Steven Age/Sex: 19/F Location: [facility] Acct: [id number] Unit: [id number] Status: REG REF Room/Bed: Re03/12/20 Disch: Att Dr: Tiffany Mcnamara Specimen #: [id number] Ordered : 03/12/20 Collected : 03/12/20 By: Received: 03/12/20 By: ABENA Source: URINE CC Specimen Description: Procedure Result - COLONY COUNT Final COLONY COUNT LESS THAN 1,000 CFU/ML URINE CULTURE Final NO GROWTH 24 HOURS NO GROWTH 48 HOURS URINE CULTURE Preliminary (Corrected) NO GROWTH 24 HOURS END OF REPORT Name Value Range Interpretation Code Description Data Jayla rce(s) Supporting Document(s) BLOOD TYPE [facility] ANTIBODY SCREEN NEGATIVE [email or web address] ID Date Data Source [id number] 03/13/2020 03:09:00 PM EDT [facility] Run: 03/14/20 0759 INTERFACED REPORT Name: Bruna Steven Age/Sex: / Location: [facility] Acct: [id number] Unit: [id number] Status: REG REF Room/Bed: Re03/12/20 Disch: Kasey Dr: Tiffany Mcnamara Specimen #: [id number] Ordered : 03/12/20 Collected : 03/12/20 By: [...] Supporting Document(s) RAPID PLASMA REAGIN NON-REACTIVE NONREACTIVE [facility] Test performed by charcoal methodology ID Date Data Source [id number] 03/14/2020 07:29:00 AM EDT [facility] Run: 03/14/20 0759 INTERFACED REPORT Name: Bruna Steven Age/Sex: 19/F Location: [facility] Acct: [id number] Unit: [id number] Status: REG REF Room/Bed: Re03/12/20 Disch: Kasey Dr: Tiffany Mcnamara Specimen #: [id number] Ordered : 03/12/20 Collected : 03/12/20 By: [...] VARICELLA IGG ANTIBODY 335 index Immune >165 [facility] Negative <135 Equivocal 135 - 165 Positive > 165 A positive result generally indicates exposure to the pathogen or administration of specific immunoglobulins, but it is not indication of active infection or stage of disease. Performed at: [facility] [id number] Champagne Maker: Maricel Collins MD, Phone: [phone] ID Date Data Source [id number] 03/14/2020 07:58:00 AM EDT [facility] Run: 03/14/20 0759 INTERFACED REPORT Name: Bruna Steven Age/Sex: 19/F Location: [facility] Acct: [id number] Unit: [id number] Status: REG REF Room/Bed: Re03/12/20 Disch: Att Dr: Tiffany Mcnamara Specimen #: [id number] Ordered : 03/12/20 Collected : 03/12/20 By: [...] rce(s) Supporting Document(s) ID Date Data Source [id number] 03/12/2020 04:13:00 PM EDT [facility] Run: 03/14/20 0759 INTERFACED REPORT Name: Bruna Steven Age/Sex: 19/F Location: [facility] Acct: [id number] Unit: [id number] Status: REG REF Room/Bed: Re03/12/20 Disch: Att Dr: Tiffany Mcnamara Specimen #: [id number] Ordered : 03/12/20 Collected : 03/12/20 By: [...] HGBA1C 4.5 % 4.1-6.5 N Shameka Garytavares [facility] ID Date Data Source [id number] 03/14/2020 07:29:00 AM EDT [facility] Run: 03/14/20 0759 INTERFACED REPORT Name: PrimoBruna Age/Sex: 19/F Location: [facility] Acct: [id number] Unit: [id number] Status: REG REF Room/Bed: Re03/12/20 Disch: Att Dr: Tiffany Mcnamara Specimen #: [id number] Ordered : 03/12/20 Collected : 03/12/20 By: [...] SCREEN 4TH GENERATION Non Reactive Non Reactive [facility] Performed at: RN - [facility] [id number] Champagne Maker: Maricel Collins MD, Phone: [phone] ID Date Data Source [id number] 03/12/2020 04:13:00 PM EDT [facility] Run: 03/14/20 0759 INTERFACED REPORT Name: Bruna Steven Age/Sex: 19/ Location: [facility] Acct: [id number] Unit: [id number] Status: REG REF Room/Bed: Re03/12/20 Disch: Att Dr: Tiffany Mcnamara Specimen #: [id number] Ordered : 03/12/20 Collected : 03/12/20 By: [...] Document(s) HEPATITIS B SURFACE ANTIGEN NEGATIVE NEGATIVE [employer] ID Date Data Source [id number] 03/12/2020 04:13:00 PM EDT [facility] Run: 03/14/20 0759 INTERFACED REPORT Name: Bruna Steven Age/Sex: 19/F Location: [facility] Acct: [id number] Unit: [id number] Status: REG REF Room/Bed: Re03/12/20 Disch: Att Dr: Tiffany Mcnamara Specimen #: [id number] Ordered : 03/12/20 Collected : 03/12/20 By: [...] Supporting Document(s) RUBELLA IGG ANTIBODY IMMUNE IMMUNE [facility] Testing performed by sandwich immunoass ay using direct chemiluminometric technology ID Date Data Source [id number] 01/31/2020 11:08:00 AM EDT [facility] Name Value Range Interpretation Code Description Data Jayla rce(s) Supporting Document(s) HCG QUANTITATIVE 44484 mIU/ml [facility] Time Post-Conception mIU /mL 7 to 10 days >3 30 days 100 to 500 40 days >2000 10 weeks 50,000 to 140,000 14 weeks 10,000 to 50,000 Maximum levels of hCG can be reached by the second to third months following conception. Levels decrease to as low as 6000 by the third trimester. Testing was performed on the [employer] System. The methodology used detects the intact hCG molecule and free beta subunits of the hCG molecule. Procedure Social History Code Duration Value Status Description Data Source(s ) Smoking 08/02/2020 12:00:00 AM EST Never smoker completed Never s moker CHARTMAKER ([facility]) Smoking 07/05/2020 12:00:00 AM EST Never Smoker completed Never S moker eCW1 ([facility]) Smoking 06/29/2020 12:00:00 AM EST Never Smoker completed Never S moker eCW1 ([facility]) Smoking 06/29/2020 12:00:00 AM EST Never Smoker completed Never S moker eCW1 ([facility]) Smoking 06/18/2020 12:00:00 AM EST Never Smoker completed Never S moker eCW1 ([facility]) Smoking 06/11/2020 12:00:00 AM EST Never Smoker completed Never S moker eCW1 ([facility]) Smoking 06/11/2020 12:00:00 AM EST Never Smoker completed Never S moker eCW1 ([facility]) Vital Signs ID Date Data Source K Name Value Range Interpretation Code Description Data Source(s) Inhaled oxygen concentration 21 % 21 % CHARTMAKER ([facility]) Oxygen saturation in Arterial blood by Pulse oximetry 99 % 99 % CHARTMAKER ([facility]) Body mass index (BMI) [Ratio] 20.1628054343619 kg/m2 20.3150116542051 kg/m2 CHARTMAKER ([facility]) Body weight 110 [lb_av] 110 [lb_av] CHARTMAKER ([facility]) Body height 62 [in_i] 62 [in_i] CHARTMAKER ([facility]) Diastolic blood pressure 70 mm[Hg] 70 mm[Hg] CHARTMAKER ([facility]) Systolic blood pressure 102 mm[Hg] 102 mm[Hg] C HARTMAKER ([facility]) Respiratory rate 16 /min 16 /min CHARTMAK ER ([facility]) Heart rate 79 /min 79 /min CHARTMAKER ([facility]) Body temperature 97.1 [degF] 97.1 [degF] CHARTM GUDELIA ([facility]) Diastolic blood pressure 64 mm[Hg] 64 mm[Hg] eCW1 ([facility]) Systolic blood pressure 106 mm[Hg] 106 mm[Hg] e CW1 ([facility]) Body mass index (BMI) [Ratio] 20.85 kg/m2 20.85 kg/m2 [facility] ([facility]) Body height 62 [in_i] 62 [in_i] eCW1 ([facility]) Body weight 114 [lb_av] 114 [lb_av] eCW1 ([facility]) Diastolic blood pressure 68 mm[Hg] 68 mm[Hg] eCW1 ([facility]) Systolic blood pressure 108 mm[Hg] 108 mm[Hg] e CW1 ([facility]) Body mass index (BMI) [Ratio] 21.58 kg/m2 21.58 kg/m2 W1 ([facility]) Body height 62 [in_i] 62 [in_i] eCW1 ([facility]) Body weight 118 [lb_av] 118 [lb_av] eCW1 ([facility]) Diastolic blood pressure 72 mm[Hg] 72 mm[Hg] eCW1 ([facility]) Systolic blood pressure 102 mm[Hg] 102 mm[Hg] e CW1 ([facility]) Body mass index (BMI) [Ratio] 21.985 kg/m2 21.9 85 kg/m2 W1 ([facility]) Body height 62 [in_i] 62 [in_i] eCW1 ([facility]) Body weight 54.52 kg 54.52 kg W ([facility]) Body weight 120.2 [lb_av] 120.2 [lb_av] eCW1 ([facility]) Diastolic blood pressure 52 mm[Hg] 52 mm[Hg] [facility] Systolic blood pressure 97 mm[Hg] 97 mm[Hg] [facility] Oxygen saturation in Arterial blood by Pulse oximetry 98 % 98 % [facility] Respiratory rate 18 /min 18 /min [facility] ealt Heart rate 71 /min 71 /min [facility] Body temperature 98.4 [degF] 98.4 [degF] [facility] Body weight 53.00 kg 53.00 kg [facility] Body height 157.48 cm 157.48 cm [facility]
[2020-09-14 21:34] LABS: INR 1.08; PROTHROMBIN TIME 14.2 SECONDS (12.5-14.3)
[2020-09-14 21:35] LABS: PARTIAL THROMBOPLASTIN TIME 35.2 SECONDS (24.2-38.5)
[2020-09-14 21:37] LABS: D-DIMER QUANT 296.72 ng/ml (<500)
[2020-09-14 21:54] LABS: ALBUMIN 4.2 GM/DL (3.2-5.2); ALT/SGPT 24 U/L (12-78); BILIRUBIN,DIRECT 0.2 MG/DL (0.0-0.2); BILIRUBIN,TOTAL 0.3 MG/DL (0.2-1.0); BLOOD UREA NITROGEN 10 MG/DL (7-18); CALCIUM LEVEL 9.3 MG/DL (8.5-10.1); CARBON DIOXIDE LEVEL 26 MEQ/L (21-32); CHLORIDE LEVEL 108 MEQ/L (98-107); CK-MB VALUE MASS < 1.0 NG/ML (<3.6); CPK CREATINE PHOSPHOKINASE 49 U/L (26-192); CREATININE FOR GFR 0.62 MG/DL (0.55-1.30); FREE T4 1.37 NG/DL (0.78-1.33); GLUCOSE, FASTING 90 MG/DL (70-100); LIPASE 103 U/L (73-393); MB/CK RELATIVE INDEX 2.04 (< OR =4); POTASSIUM SERUM 3.9 MEQ/L (3.5-5.1); SODIUM LEVEL 141 MEQ/L (136-145); TOTAL PROTEIN 7.1 GM/DL (6.4-8.2); TROPONIN I < 0.02 NG/ML (< 0.10)
[2020-09-14 22:08] LABS: HCG, SERUM QUALITATIVE NEGATIVE (NEGATIVE)
--- NOTE | 2020-09-14 22:55 | REPVR ---
PROCEDURE INFORMATION: Exam: XR Chest, 2 Views Exam date and time: 09/14/2020 8:53 PM Age: 20 years old Clinical indication: Other: Chest pain TECHNIQUE: Imaging protocol: XR of the chest Views: 2 views. COMPARISON: No relevant prior studies available. FINDINGS: Lungs: Degree of inflation of the lungs is normal. No evidence of pulmonary edema. No focal airspace process. No concerning parenchymal lung mass. Pleural spaces: No pleural effusion or pneumothorax. Heart/Mediastinum: Cardiac silhouette appears normal. No mediastinal adenopathy or hilar mass. Bones/joints: Osseous structures show no acute or concerning abnormality. IMPRESSION: No active or focal cardiopulmonary process. Electronically signed by: Martin Anderson On 09/14/2020 22:55:12 PM
[2020-09-14 23:00] VITALS: BP 122/60
--- NOTE | 2020-09-15 20:49 | ECGEPIP ---
[facility] - ED Test Date: 2020-09-14 Pat Name: NIMA STEVEN Department: Room: - Gender: Female Etl Software Engineer: : 2000 Requested By: ADRIAN CROSS PA-C Order Number: [id number] Reading MD: Edwige Kirby Measurements Intervals [place] Rate: 70 P: -10 MN: 110 QRS: 87 QRSD: 78 T: 37 QT: 358 QTc: 386 Interpretive Statements Sinus rhythm with short MN No prior Electronically Signed on 09-15-2020 20:49:38 EST by Edwige Kirby
== END 2020-09-14 23:30 | disposition home or self-care (01) ==
LOC: M ED 20:09
DX: R07.9 Chest pain, unspecified (principal); R42 Dizziness and giddiness

== ENCOUNTER → 2021-02-11 | Outpatient (CLI) | payer OTHER ==
[2021-02-11 17:31] LABS: HEMATOCRIT 39.6 % (36.0-47.0); HEMOGLOBIN 13.1 g/dl (12.0-15.5); MEAN CORPUSCULAR HEMOGLOBIN 28.3 pg (27.0-33.0); MEAN CORPUSCULAR HGB CONC 33.1 g/dl (32.0-36.5); MEAN CORPUSCULAR VOLUME 85.5 fl (80.0-96.0); PLATELET COUNT, AUTOMATED 261 10^3/uL (150-450); RED BLOOD COUNT 4.63 10^6/uL (4.00-5.40); WHITE BLOOD COUNT 8.7 10^3/uL (4.0-10.0)
[2021-02-11 18:43] LABS: HEPATITIS C VIRUS ABY INDEX 0.1 INDEX (<0.8); HIV 1&2 SCREEN CENTAUR NEGATIVE (NEGATIVE)
[2021-02-11 18:49] LABS: GC DNA AMPLIFICATION NEGATIVE (NEGATIVE)
== END ==
LOC: M PLALAB 14:47
PROVIDERS: ATTEND Specialist
DX: Z34.81 Encounter for supervision of other normal pregnancy, first trimester (principal); Z3A.00 Weeks of gestation of pregnancy not specified

== ENCOUNTER 2021-02-20 14:40 | Emergency (ER) | payer OTHER ==
[~2021-02-20] VITALS: Ht 157.5 cm; Wt 51.7 kg
[2021-02-20 15:30] LABS: BASO % 0.5 % (0.0-1.0); EOS # 0.1 10^3/uL (0.0-0.5); EOS % 0.7 % (0.0-3.0); HEMATOCRIT 40.3 % (36.0-47.0); HEMOGLOBIN 13.5 g/dl (12.0-15.5); LYMPH # 1.5 10^3/uL (1.5-5.0); LYMPH % 19.6 % (24.0-44.0); MEAN CORPUSCULAR HEMOGLOBIN 28.5 pg (27.0-33.0); MEAN CORPUSCULAR HGB CONC 33.5 g/dl (32.0-36.5); MONO # 0.6 10^3/uL (0.0-0.8); MONO % 7.9 % (2.0-8.0); NEUTROPHILS # 5.4 10^3/uL (1.5-8.5); NEUTROPHILS % 70.9 % (36.0-66.0); PLATELET COUNT, AUTOMATED 289 10^3/uL (150-450); RED BLOOD COUNT 4.74 10^6/uL (4.00-5.40); WHITE BLOOD COUNT 7.6 10^3/uL (4.0-10.0)
[2021-02-20 16:03] LABS: BLOOD UREA NITROGEN 9 MG/DL (7-18); CALCIUM LEVEL 9.4 MG/DL (8.5-10.1); CARBON DIOXIDE LEVEL 27 MEQ/L (21-32); CHLORIDE LEVEL 109 MEQ/L (98-107); CREATININE FOR GFR 0.55 MG/DL (0.55-1.30); GLUCOSE, FASTING 100 MG/DL (70-100); HCG, SERUM QUANTITATIVE 6634 MIU/ML; POTASSIUM SERUM 4.4 MEQ/L (3.5-5.1); SODIUM LEVEL 141 MEQ/L (136-145)
--- NOTE | 2021-02-20 17:54 | REP ---
INDICATION: vaginal bleeding, approx 7 weeks preg. COMPARISON: None. TECHNIQUE: Transabdominal and transvaginal scanning FINDINGS: The uterus measures 10.2 x 4.7 x 5.9 cm. The endometrial echo complex measures 4.4 mm. It is homogeneous in appearance. No anechoic structures are seen within the endometrial cavity. The right ovary measures 4 x 1.7 x 1.6 cm and is within normal limits. The left ovary measures 2.1 x 1.2 x 2.9 cm and is within normal limits. There is a small amount of free fluid in the cul-de-sac probably physiologic. IMPRESSION: Normal pelvic ultrasound. No evidence of an intrauterine or extra uterine . <Electronically signed by Roger Monge > 02/20/21 [id number]
[2021-02-20 18:35] VITALS: BP 107/58
== END 2021-02-20 18:38 | disposition home or self-care (01) ==
LOC: M ED 14:40
DX: O03.9 Complete or unspecified spontaneous abortion without complication (principal)

== ENCOUNTER → 2021-02-22 | Outpatient (CLI) | payer OTHER | LOC: M PLALAB 11:39 | PROVIDERS: ATTEND Physician Assistant | DX: O03.9 Complete or unspecified spontaneous abortion without complication (principal) ==